=== PATIENT | female | born 1990 | race Caucasian/White ===

== ENCOUNTER 2022-10-23 14:52 | Emergency (ER) | payer OTHER, SELFPAY ==
[2022-10-23 14:52] VITALS: BP 105/68; PULSE 74; RESP 15; TEMP 36.9; O2SAT 100
--- NOTE | 2022-10-23 15:13 | ED.GENADULT ---
HPI - General Adult General Chief complaint: Nausea/Vomiting/Diarrhea Stated complaint: vomiting and urinary issues Time Seen by Provider: 10/23/22 15:05 Source: patient History of Present Illness HPI narrative: -32-year-old female presenting with nausea and vomiting and abdominal pain. Patient states her symptoms have been ongoing for the past several weeks. She describes her symptoms as progressively worsening nausea with vomiting and generalized abdominal pain. She denies any recent illnesses or trauma. Onset (ago): month(s) Location: abdomen Related Data Allergies Allergy/AdvReac Type Severity Reaction Status Date / Time No Known Allergies Allergy Verified 10/23/22 14:58 Exam Const: General: healthy appearing and no acute distress HENMT: Head: normal to inspection Ears: external ears normal Face/Nose/Sinus: Normal external nose present and Normal nares present Face and sinus: normal facial exam Mouth: Yes Normal oral and palatal mucosa present and Yes moist mucous membranes Eyes: Conjunctivae: conjunctivae normal EOM: EOMs intact bilaterally Neck: Neck: normal visual inspection and no meningeal signs Chest: Chest palpation & inspection: normal inspection of the chest and no tenderness Resp: Effort & Inspection: normal respiratory effort and not labored Cardio: Rate: regular rate Rhythm: regular rhythm GI: GI Palp: Yes Soft to palpation and Yes Tenderness to palpation present (GI) ( Mild tenderness to palpation in all abdominal quadrants.) : General: Yes bladder normal to palpation and No Bladder palpation abnormal Skin: General skin exam: normal color and no jaundice Neuro: General: patient oriented x3 Speech: normal speech Extrem: General: normal to inspection and no clubbing, cyanosis or edema Psych: Mental Status: mental status grossly normal Affect: normal affect Course Vital Signs Vital signs: Vital Signs Temperature 36.9 C 10/23/22 14:52 Pulse Rate 74 10/23/22 14:52 Respiratory Rate 15 10/23/22 14:52 Blood Pressure 105/68 10/23/22 14:52 Pulse Oximetry 100 10/23/22 14:52 Oxygen Delivery Room Air 10/23/22 14:52 Temperature 36.9 C 10/23/22 14:52 Pulse Rate 74 10/23/22 14:52 Respiratory Rate 15 10/23/22 14:52 Blood Pressure 105/68 10/23/22 14:52 Pulse Oximetry 100 10/23/22 14:52 Oxygen Delivery Room Air 10/23/22 14:52 Medical Decision Making MDM Narrative Medical decision making narrative: Differential diagnosis includes but not limited to bowel obstruction versus gastritis versus PUD versus food-borne illness versus pancreatitis versus appendicitis versus diverticulitis Versus . Will evaluate with labs and imaging. Will treat with IV Zofran. Patient with a positive urine . She reports having nausea and vomiting with all of her previous 4 pregnancies. She was unaware she was . Her labs are reassuring. No emergent laboratory derangements. No indication for imaging with the new information. Her abdomen was only mildly tender upon palpation upon presentation. I suspect this is due from the vomiting. Repeat exam is unchanged and relatively benign. She does well with p.o. challenge. Will provide a few doses for Zofran for home. Will provide follow-up for an head of data. She was given strict return precautions and follow-up instructions. She feels like proceed outpatient management. Vital Signs Vital Signs: Vital Signs Temperature 36.9 C 10/23/22 14:52 Pulse Rate 74 10/23/22 14:52 Respiratory Rate 15 10/23/22 14:52 Blood Pressure 105/68 10/23/22 14:52 Pulse Oximetry 100 10/23/22 14:52 Oxygen Delivery Room Air 10/23/22 14:52 Temperature 36.9 C 10/23/22 14:52 Pulse Rate 74 10/23/22 14:52 Respiratory Rate 15 10/23/22 14:52 Blood Pressure 105/68 10/23/22 14:52 Pulse Oximetry 100 10/23/22 14:52 Oxygen Delivery Room Air 10/23/22 14:52 Lab Data La
[2022-10-23] MEDS: ONDANSETRON HCL ODT 4 MG TABLET PO (15:25)
[2022-10-23 15:32] LABS: Basophils Absolute Auto 0.02 K/mm3 (0.00-0.10); Basophils Percent Auto 0.2 % (0.0-1.0); Eosinophils Absolute Auto 0.02 K/mm3 (0.02-0.50); Eosinophils Percent Auto 0.2 % (1.0-6.0); Hematocrit 32.8 % (35.0-49.0); Hemoglobin 11.1 g/dL (12.0-15.0); Immature Granulocyte Absolute 0.04 K/mm3 (0.00-0.00); Immature Granulocyte Percent A 0.4 % (0.0-0.0); Lymphocytes Absolute Auto 1.33 K/mm3 (1.10-4.50); Lymphocytes Percent Auto 13.4 % (18.0-42.0); Mean Corpuscular HGB Conc 33.8 g/dL (32.0-36.0); Mean Corpuscular Hemoglobin 28.2 pg (27.0-31.0); Mean Corpuscular Volume 83.5 fL (78.0-102.0); Mean Platelet Volume 10.1 fl (9.2-11.8); Monocytes Percent Auto 6.1 % (2.0-11.0); Neutrophils Absolute Auto 7.9 K/mm3 (1.7-7.2); Neutrophils Percent Auto 79.7 % (50.0-70.0); Platelet Count Result 288 K/mm3 (150-420); Red Blood Count 3.93 M/mm3 (4.20-5.40); Red Cell Distribution Width 14.8 % (11.6-14.4); White Blood Count 9.9 K/mm3 (4.8-10.8)
[2022-10-23 15:34] LABS: Bilirubin Urine Negative (Negative); Blood Urine 1+ (Negative); Color Urine Light Yellow (Yellow); Glucose Urine UA Negative (Negative); Ketones Urine 1+ (Negative); Leukocyte Esterase Ur 1+ LEU/UL (Negative); Nitrate Urine Negative (Negative); Protein Urine Trace (Negative); Specific Grav Ur 1.015 (1.010-1.020); Urobilinogen Urine >=8.0 mg/dL (0.2-1.0); pH Urine 7.5 (5.0-8.0)
[2022-10-23 15:37] LABS: Pregnancy On Board Control Positive; Urine Pregnancy Test Positive
[2022-10-23 15:40] LABS: Add Urine Microscopic? YES; Appearance Urine Cloudy (Clear)
[2022-10-23 15:41] LABS: Bacteria Urine 4+ /hpf; Squamous Epithelial Cell Urine Many /hpf (Few)
[2022-10-23 15:46] LABS: Alanine Aminotransferase 17 U/L (14-59); Albumin Level 2.6 g/dL (3.4-5.0); Alkaline Phosphatase 102 U/L (46-116); Anion Gap 10 mmol/L (8-16); Aspartate Amino Transferase 10 U/L (15-37); Bilirubin,Total 0.3 mg/dL (0.00-1.00); Blood Urea Nitrogen 5 mg/dL (7-18); Calcium 8.8 mg/dL (8.5-10.1); Carbon Dioxide 29 mmol/L (21-32); Chloride 95 mmol/L (98-108); Estimated CRCL calculation 93 ml/min; Estimated Glomerular Filt Rate > 60; Glucose 97 mg/dL (70-99); Lipase 24 U/L (16-77); Osmolality Calculated 275 mOsm/kg (285-295); Potassium 3.1 mmol/L (3.5-5.1); Sodium 134 mmol/L (136-145); Total Protein 7.3 g/dL (6.4-8.2)
[2022-10-23 16:46] VITALS: BP 121/60; PULSE 88; RESP 16; TEMP 36.6; O2SAT 100
--- NOTE | 2022-10-27 15:10 | PC.NURSE ---
dr marie reviewed abnormal urine culture. call to pt to confirm pharmacy and notify need for abt for uti. call placed to [facility], order called in for Keflex 500mg po tid x 7 days, pt aware and will supervisor opening and picking
== END 2022-10-23 16:49 | disposition home or self-care (01) ==
PROVIDERS: Emergency Provider Emergency Medicine
DX: O26.899 Other specified pregnancy related conditions, unspecified trimester (principal); R11.2 Nausea with vomiting, unspecified; Z3A.00 Weeks of gestation of pregnancy not specified
CPT/HCPCS: 36415; 80053; 81001; 81025; 83690; 85025; 87077; 87086; 87088; 87186; 99283; A9270

== ENCOUNTER 2024-04-05 05:18 | Emergency (ER) | payer OTHER, SELFPAY ==
[2024-04-05 05:21] VITALS: BP 147/99; PULSE 102; RESP 18; TEMP 36.8; O2SAT 100
--- NOTE | 2024-04-05 05:36 | ED.GENADULT ---
HPI - General Adult General Chief complaint: Urogenital-Female Stated complaint: urogenital female Time Seen by Provider: 04/05/24 05:35 History of Present Illness HPI narrative: Joy is a 33F with a PMH of polysubstance use that presented to the ED feeling off. She reportedly had consensual vaginal intercourse last night. Since that time she has felt off . She denies any pain, burning, irritation or discharge. She was tearful and feels like he he put something there . She was very tearful through the exam and had trouble giving concise answers. Related Data Home Medications ?Medication ?Instructions ?Recorded ?Confirmed ?Last Taken ?Type bupropion HCl 150 mg 24 hr tablet, 150 mg PO DAILY 04/05/24 04/05/24 04/04/24 History extended release hydroxyzine HCl 25 mg tablet 25 mg PO .daily 04/05/24 04/05/24 04/04/24 History norethindrone 1.5 mg-ethinyl 1 tablet PO DAILY 04/05/24 04/05/24 Unknown History estradiol 30 mcg(21)/iron 75 mg(7) tablet (Veronica Fe 1.5/30 (28)) Allergies Allergy/AdvReac Type Severity Reaction Status Date / Time No Known Allergies Allergy Verified 04/05/24 06:26 Review of Systems Review of Systems: All systems reviewed & are unremarkable except as noted in HPI and below Exam Const: General: cooperative, healthy appearing, comfortable, no acute distress, well developed, alert, awake and Physically active Orientation/consciousness: oriented to person, oriented to place and oriented to time HENMT: Head: normal to inspection, normocephalic and atraumatic Ears: hearing grossly normal bilaterally and external ears normal Face/Nose/Sinus: Normal external nose present Eyes: General: appearance normal, both eyes and all related structures Periorbital: periorbital findings normal Sclera: sclerae normal Pupils: Equal, round and reactive pupils present Neck: Neck: normal visual inspection Chest: Chest palpation & inspection: normal inspection of the chest Resp: Effort & Inspection: normal respiratory effort, able to speak in complete sentences and no respiratory distress Cardio: Jugular venous distension: no JVD : Speculum Exam - Vagina: abnormal vaginal discharge white, malodorous and frothy Speculum Exam - Cervix: normal appearance of the cervix Other: No foreign body in the vagina Skin: General skin exam: normal color and no rashes or lesions noted Neuro: General: oriented to person, oriented to place and oriented to time Cranial nerves: Yes Equal, round and reactive pupils present Extrem: General: normal to inspection Course Course Emergency Course: Given a dose of fluconazole Vital Signs Vital signs: Vital Signs Temperature 98.3 F 04/05/24 05:21 Pulse Rate 102 H 04/05/24 05:21 Respiratory Rate 18 04/05/24 05:21 Blood Pressure 147/99 H 04/05/24 05:21 Pulse Oximetry 100 04/05/24 05:21 Oxygen Delivery Room Air 04/05/24 05:21 Temperature 98.3 F 04/05/24 05:21 Pulse Rate 102 H 04/05/24 05:21 Respiratory Rate 18 04/05/24 05:21 Blood Pressure 147/99 H 04/05/24 05:21 Pulse Oximetry 100 04/05/24 05:21 Oxygen Delivery Room Air 04/05/24 05:21 Medical Decision Making Vital Signs Vital Signs: Vital Signs Temperature 98.3 F 04/05/24 05:21 Pulse Rate 102 H 04/05/24 05:21 Respiratory Rate 18 04/05/24 05:21 Blood Pressure 147/99 H 04/05/24 05:21 Pulse Oximetry 100 04/05/24 05:21 Oxygen Delivery Room Air 04/05/24 05:21 Temperature 98.3 F 04/05/24 05:21 Pulse Rate 102 H 04/05/24 05:21 Respiratory Rate 18 04/05/24 05:21 Blood Pressure 147/99 H 04/05/24 05:21 Pulse Oximetry 100 04/05/24 05:21 Oxygen Delivery Room Air 04/05/24 05:21 Discharge Plan Discharge Clinical Impression: Vulvovaginal candidiasis Patient Disposition: Home, Self-Care Condition: Stable Instructions: Yeast Infection (ED) Patient Language: Ukrainian Prescriptions: No Action ondansetron 4 mg tablet,disintegrating 4 mg PO Q8H PRN (Reason: nausea and vomiting) Qty: 7 0RF Follow-up/Referrals: UNKNOWN,DOCTOR [Primary Care Provider] -
--- NOTE | 2024-04-05 05:46 | PC.NURSE ---
pt ambulated to bathroom for urine specimen
[2024-04-05 06:00] LABS: Add Urine Microscopic? YES; Appearance Urine Clear (Clear); Bilirubin Urine Negative (Negative); Blood Urine Negative (Negative); Color Urine Yellow (Yellow); Glucose Urine UA Negative (Negative); Ketones Urine Negative (Negative); Leukocyte Esterase Ur Trace (Negative); Nitrate Urine Negative (Negative); Protein Urine Trace (Negative); Specific Grav Ur >= 1.030 (1.010-1.020); Urobilinogen Urine 0.2 mg/dL (0.2-1.0)
[2024-04-05 06:05] LABS: Pregnancy On Board Control Positive; Urine Pregnancy Test Negative
[2024-04-05 06:09] LABS: Bacteria Urine 4+ /hpf; RBC Urine 0-2 /hpf (0-2); Squamous Epithelial Cell Urine Few /hpf (Few)
[2024-04-05] MEDS: FLUCONAZOLE 150 MG TABLET PO (06:33)
== END 2024-04-05 06:35 | disposition home or self-care (01) ==
PROVIDERS: Emergency Provider Family Medicine
DX: B37.31 Acute candidiasis of vulva and vagina (principal)
CPT/HCPCS: 81001; 81025; 81513; 99284; A9270

== ENCOUNTER 2024-04-30 10:14 | Emergency (ER) | payer OTHER, SELFPAY ==
[2024-04-30] VITALS (7 sets, daily range): BP systolic 130–141; BP diastolic 82–98; PULSE 81–100; RESP 8–22; TEMP 36.5; O2SAT 100
--- NOTE | ~2024-04-30 | XR_ITS ---
EXAMINATION: XR chest 1V portable DATE: 04/30/2024 10:56 INDICATION: Chest pain. TECHNIQUE: A single frontal view of the chest was obtained. COMPARISON: None. FINDINGS: There is no pneumonia, pleural effusion, or pneumothorax. The heart size is normal. IMPRESSION: 1. No acute cardiopulmonary disease. Reviewed, dictated and finalized at location A. ERIOLOGIST DAIRY
--- NOTE | 2024-04-30 10:27 | ECG_ITS ---
Test Date: 2024-04-30 10:25:34 Measurements Intervals [place] Rate: 100 P: 80 NJ: 115 QRS: 75 QRSD: 102 T: 86 QT: 365 QTc: 473 Interpretive Statements SINUS TACHYCARDIA WITH SHORT [place] INTERVAL DELAYED PRECORDIAL R/S TRANSITION BORDERLINE ECG No previous ECG available for comparison Electronically Signed On 04-30-2024 10:34:07 BEAMER OPERATOR by Fab Liriano D.O.
--- NOTE | 2024-04-30 10:31 | ED_ITS ---
HPI - Chest Pain General Chief Complaint: Chest Pain Stated Complaint: URI Time Seen by Provider: 04/30/24 10:31 Source: patient Mode of arrival: ambulatory Limitations: no limitations History of Present Illness HPI narrative: patient is a 33-year-old female with prior IVDA and current fentanyl use recreationally here with some left-sided chest pain for the past day. No prior CAD. MD complaint: chest pain and chest discomfort Pertinent past history: other ( opiate use disorder, OCP use) Onset (ago): day(s) (1) Timing of current episode: constant Prior episodes: No Onset: during rest and during exertion Pain location: substernal and left chest Pain radiation: none Severity: mild Pain scale (0-10): 5 Quality: tightness, heaviness and sharp Relieving factors: nothing Exacerbating factors: exertion and stress Context: other ( Patient has left-sided chest pain for the past day) Associated symptoms: nausea and dyspnea Treatment prior to arrival: none Risk Factors Coronary artery disease risk factors: none Thoracic aortic dissection risk factors: none Related Data On Oral Contraceptives: Yes Home Medications ?Medication ?Instructions ?Recorded ?Confirmed ?Last Taken ?Type bupropion HCl 150 mg 24 hr tablet, 150 mg PO DAILY 04/05/24 04/05/24 04/04/24 Hi story extended release hydroxyzine HCl 25 mg tablet 25 mg PO .daily 04/05/24 04/05/24 04/04/24 History norethindrone 1.5 mg-ethinyl 1 tablet PO DAILY 04/05/24 04/05/24 Unknown History estradiol 30 mcg(21)/iron 75 mg(7) tablet (Veronica Fe 1.5/30 (28)) Allergies Allergy/AdvReac Type Severity Reaction Status Date / Time No Known Allergies Allergy Verified 04/30/24 10:29 Review of Systems Review of Systems: All systems reviewed & are unremarkable except as noted in HPI and below Constitutional: Constitutional: Reports no additional constitutional complaints Eyes: Eyes: Reports no additional eye complaints ENT: Reports system reviewed and no additional complaints, except as documented Cardiovascular: Cardiovascular: Reports no additional cardiovascular complaints Respiratory: Respiratory: Reports no additional respiratory complaints Gastrointestinal: Gastrointestinal: Reports no additional gastrointestinal complaints Genitourinary: Genitourinary: Reports no additional female genitourinary complaints Musculoskeletal: Musculoskeletal: Reports no additional musculoskeletal complaints Integumentary/Breasts: Skin/Breast: Reports system reviewed and no additional complaints, except as docu Neurologic: Reports system reviewed and no additional complaints, except as documented Psychiatric: Psychiatric: Reports no additional psychiatric complaints Endocrine: Endocrine: Reports no additional endocrine complaints Hematologic/Lymphatic: Hematologic/Lymphatic: Reports no additional hematologic/lymphatic complaints Allergic/Immunologic: Allergic/Immunologic: Reports no additional allergic/immunologic complaints Exam Const: General: healthy appearing Nutritional Appearance: well nourished Orientation/consciousness: patient oriented x3 HENMT: Head: normal to inspection Ears: external ears normal Face/Nose/Sinus: Normal external nose present Eyes: Conjunctivae: conjunctivae normal Pupils: Equal, round and reactive pupils present EOM: EOMs intact bilaterally Neck: Neck: normal visual inspection Chest: Chest palpation & inspection: normal inspection of the chest Resp: Effort & Inspection: normal respiratory effort and not labored Auscultation: clear to auscultation bilaterally and no crackles Cardio: Rate: regular rate Rhythm: regular rhythm Heart sounds: no murmurs GI: Inspection: non-distended GI Palp: Yes Soft to palpation and No Tenderness to palpation present (GI) Auscultation: normal bowel sounds : General: Yes bladder normal to palpation Back/Spine/Pelvis: Back: no CVA tenderness Skin: General skin exam: normal color Rashes: no rashes Neuro: General: patient oriented x3 Cranial nerves: Yes Nystagmus not present Speech: normal speech Extrem: General: normal to inspection Psych: Mental Status: mental status grossly normal Affect: normal affect Attitude: cooperative Course Vital Signs Vital signs: Vital Signs Oxygen Delivery Room Air 04/30/24 10:14 Temperature 36.5 C 04/30/24 10:19 Pulse Rate 86 04/30/24 11:31 Respiratory Rate 14 04/30/24 11:31 Blood Pressure 131/91 H 04/30/24 11:31 Pulse Oximetry 100 04/30/24 11:07 Oxygen Delivery Room Air 04/30/24 10:19 MDM - Chest Pain MDM Narrative Medical decision making narrative: patient is a 33-year-old female with some left-sided chest pain for the past day. We will do cardiac workup at this time. we could not get an IV at this time from prior IVDA use and I was going to do a femoral stick and she decided she did not want that at that time. All in all we tried multiple nurses and doctors to get IV and unsuccessful attempts. Patient wanted to go AMA at this time. She did not want further workup. We had an EKG and chest x-ray which were stable. I personally explained to the patient the risks and consequences involved in leaving at this time. I explained the benefits of treatment and alternatives. Patient is AAO x4. I will send antibiotic for UTI. Lab Data Attestation: I reviewed the patient's lab results. Labs: Lab Results 04/30/24 Range/Units 10:34 Urine Color Light yellow (Yellow) Urine Appearance Cloudy A (Clear) Urine pH 8.0 (5.0-8.0) Ur Specific [place] 1.020 (1.010-1.020) Urine Protein Trace H (Negative) Urine Glucose (UA) Negative (Negative) Urine Ketones Negative (Negative) Ur Blood (Man) Negative (Negative) Urine Nitrate Positive H (Negative) Urine Bilirubin Negative (Negative) Urine Urobilinogen 0.2 (0.2-1.0) mg/dL Leukocyte Esterase Rfl 1+ H (Negative) [place]/UL Urine RBC None seen (0-2) /hpf Urine WBC 0-3 (0-3) /hpf Ur Squamous Epith Cells Few (Few) /hpf Amorphous Sediment Moderate H (None) Urine Bacteria 2+ H (None) /hpf Urine Test Negative Urine Opiates Screen Negative (Negative) Urine Methadone Screen Negative (Negative) Ur Barbiturates Screen Negative (Negative) Ur Phencyclidine Scrn Negative (Negative) Ur Amphetamine Screen Positive A (Negative) U Benzodiazepines Scrn Negative (Negative) Urine Cocaine Screen Negative (Negative) U Cannabinoids Screen Positive A (Negative) Imaging Data Attestation: I personally reviewed and interpreted this imaging study as follows: Radiologist's impression: chest x-ray is negative for acute process ECG Data EKG #1: Attestation: I personally reviewed and interpreted this ECG as follows: ECG completion date: 04/30/24 ECG completion time: 11:06 EKG Interpretation: tachycardia, sinus rhythm, no ectopy, non-specific ST changes, normal QRS, normal QT and NL axis Discharge Plan Discharge Clinical Impression: Atypical chest pain, Amphetamine abuse, UTI (urinary tract infection), Opioid abuse Patient Disposition: Left Against Medical Advice Condition: Stable Patient Language: Mohawk Prescriptions: New cephalexin 500 mg capsule 500 mg PO BID 7 Days Qty: 14 0RF No Action bupropion HCl 150 mg tablet extended release 24 hr 150 mg PO DAILY hydroxyzine HCl 25 mg tablet 25 mg PO .daily norethindrone-e.estradiol-iron [Veronica Fe 1.5/30 (28)] 1.5 mg-30 mcg (21)/75 mg (7) tablet 1 tablet PO DAILY Follow-up/Referrals: UNKNOWN,DOCTOR [Primary Care Provider] - Time of Disposition: 11:50
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
--- OUTSIDE RECORDS SUMMARY | 2024-04-30 10:43 | XMS_ITS | Encounter Summary ---
Author Organization [facility] Healthcare Address [address] [place] [address] Care Team Providers Care Manager Oracle Name Role Phone Ronan Lebron MD Primary Care Provider [phone] Encounter Details Date Type Department Care Team (Late st Contact Info) Description 04/22/2024 8:30 AM [facility] Encounter [facility] [address] [place] [address] Rosey Martinez MD [address] [place] [address] [address] Social History Tobacco Use Types Packs/Day Years [...] Never 04/15/2023 How often do you attend pentecostalism or methodist serv ices? Never 04/15/2023 Do you belong to any clubs o r organizations such as pentecostalism groups, unions, fraternal or athletic groups, or [...] staff should administer the PHQ-9) 3 04/15/2023 [facility] - Occupational Stress [...] place to sleep or slept in a penitentiary (including now)? No 04/15/2023 Personal Safety Answer Date Recorded Have you ever been in or are you currently in a harmful physical or emotional relationship or is someone making you feel afraid or unsafe? Denies 04/15/2023 Comments No Sex and Gender Information Value Date Recorded Sex Assigned at Not on file Legal Sex Female 2:58 AM ENTRY LEVEL TRUCK DRIVER Gender Identity Female 04/16/2024 3:36 PM ENTRY LEVEL TRUCK DRIVER Sexual Orientation Not on file documented as of this encounter Plan of Treatment Not on file documented as of this encounter Visit Diagnoses Not on filedocumented in this encounter Care Teams Manager Oracle Relationship Specialty Start Date End Date Ronan Lebron MD [address] [place] [id number] PCP - General Family Medicine 09/23/16 documented as of this encounter
--- OUTSIDE RECORDS SUMMARY | 2024-04-30 10:43 | XMS_ITS | Encounter Summary ---
Author Organization [facility] Healthcare Address [address] [place] [address] Care Team Providers Care Barber Shop Operator Name Role Phone Ronan Lebron MD Primary Care Provider [phone] Encounter Details Date Type Department Care Team (Late st Contact Info) Description 10/15/2020 [facility] Warm Hand Off Program [address] [place], [place] [phone] Richa Luna Social History Tobacco Use Types Packs/Day Years Used Date Smoking Tobacco: Every Day Cigarettes Smokeless Tobacco: Never Comments:Smoking History Pac ks/day: 1 Packs Alcohol Use Standard Drinks/Week Comments No 0 (1 standard drink = 0.6 oz pur e alcohol) AUDIT-C Answer Date Recorded Q1: How often do you have a drink containing alc ohol? Never 10/13/2020 Average Number of Drinks Not on file 021 Frequency of Binge Drinking Not on file 09/25 Comments No Sex and Gender Information Value Date Recorded Sex Assigned at Not on file Legal Sex Female 2:58 AM CATALYST UNIT OPERATOR Gender Identity Female 04/16/2024 3:36 PM CATALYST UNIT OPERATOR Sexual Orientation Not on file documented as of this encounter Progress Notes * Ana Henderson - 10/15/2020 3:40 PM CDT Completed retroactively for Warm Hand Off Program data documented in this encounter Plan of Treatment Not on file documented as of this encounter Visit Diagnoses Not on filedocumented in this encounter Care Teams Barber Shop Operator Relationship Specialty Start Date End Date Ronan Lebron MD [address] [place] [id number] PCP - General Family Medicine 09/23/16 documented as of this encounter
--- OUTSIDE RECORDS SUMMARY | 2024-04-30 10:43 | XMS_ITS | Referral Summary ---
Author Organization [facility] al Address 1 [place] [address] Care Team Providers Care Hand Baseball Sewer Name Role Phone Ronan Lebron MD Primary Care Provider Encounters Date Type Department Care Team Description 04/22/2024 8:30 AM PRODUCTION SUPERVISOR OFF SHIFT Hospital Encounter [facility] Medical Care 1 [place] [address] Rosey Martinez MD 04/16/2024 [facility] Initial Eligibility [facility] Warm Hand Off Program 1 [place], [place] [phone] LunaRicha palacios from Last 3 Months Allergies No known active allergies Medications ibuprofen (ADVIL,MOTRIN) 600 mg tabletIndicatio ns:Pain Take 1 tablet (600 mg total) by mouth every 6 (six) hours as needed for pain 30 tablet 1 04/16/2023 Active docusate sodium (COLACE) 100 mg capsuleIndicati ons:constipatio n,Stool Softener Take 1 capsule (100 mg total) by mouth 2 (two) times a day 24 capsule 1 04/16/2023 Active Active Problems Problem Noted Date Diagnosed Date 33 weeks gestation of 04/15/2023 History of drug abuse ([facility]) 03/01/2013 Overview (06/30/2016): History of heroin abuse Imprisonment 03/01/2013 Overview (07/01/2016): Incarceration Immunizations Name Administration Dates Next Due Influenza, Quadrivalent, Spl it, Preservative Free, Intramuscular 07/27/2015 MMR 10/15/2020(Deferred: No longer needed),07/27/2015 Tdap 07/26/2015 Social History Tobacco Use Types Packs/Day Years [...] Never 04/15/2023 How often do you attend restorationist or buddhist serv ices? Never 04/15/2023 Do you belong to any clubs o r organizations such as restorationist groups, unions, fraternal or athletic groups, or [...] you are drinking? Patient does not drink Q3: How often do you have si [...] staff should administer the PHQ-9) 3 04/15/2023 [facility] [place] of Occupat ional Health - Occupational Stress [...] place to sleep or slept in a assisted (including now)? No 04/15/2023 Personal Safety Answer Date Recorded Have you ever been in or are you currently in a harmful physical or emotional relationship or is someone making you feel afraid or unsafe? Denies 04/15/2023 Comments No Sex and Gender Information Value Date Recorded Sex Assigned at Not on file Legal Sex Female 2:58 AM PRODUCTION SUPERVISOR OFF SHIFT Gender Identity Female 04/16/2024 3:36 PM PRODUCTION SUPERVISOR OFF SHIFT Sexual Orientation Not on file Last Filed Vital Signs Vital Sign Reading Time Taken Comments Blood Pressure 142/95 04/17/2023 10:38 AM PRODUCTION SUPERVISOR OFF SHIFT Pulse 64 04/17/2023 10:38 AM PRODUCTION SUPERVISOR OFF SHIFT Temperature 37 ??C (98.6 ??F) 04/17/2023 10:38 AM PRODUCTION SUPERVISOR OFF SHIFT Respiratory Rate 16 04/17/2023 10:38 AM PRODUCTION SUPERVISOR OFF SHIFT Oxygen Saturation 99% 04/16/2023 4:20 PM PRODUCTION SUPERVISOR OFF SHIFT Inhaled Oxygen Concentration - - Weight 54.4 kg (120 lb) 04/15/2023 1:22 PM PRODUCTION SUPERVISOR OFF SHIFT Height 160 cm (5' 3 ) 04/15/2023 12:00 PM PRODUCTION SUPERVISOR OFF SHIFT Body Mass Index 21.26 04/15/2023 12:00 PM PRODUCTION SUPERVISOR OFF SHIFT Plan of Treatment Not on file Procedures Procedure Name Priority Date/Time Associated Diagnosis Comments HEPATITIS PANEL, ACUTE Routine 04/15/2023 12:25 PM PRODUCTION SUPERVISOR OFF SHIFT GENITAL FLUID PAP SMEAR, THIN PREP AND HPV Routine 12/22/2014 7:00 PM CDT from Last 3 Months or Most Recently Relevant to Health Maintenance Results * Hepatitis panel, acute Blood (04/15/2023 12:25 PM PRODUCTION SUPERVISOR OFF SHIFT) Hep A IgM Nonreactive Nonreactive [facility] ([facility]) Comment: Interpretive Data: If Hep A IgM Ab is reported as Equivocal, a new sample should be drawn in two weeks for testing. Current interpretive data was last revised on 19. Testing performed by: [address] [address] Hep B core IgM Nonreactive Nonreactive [facility] ([facility]) Comment: Interpretive Data If HepB Core IgM Ab is reported as Equivocal, a new sample should be drawn in two weeks for testing. Current interpretive data was last revised on 19. Testing performed by: [address] [address] Hep C Ab Nonreactive Nonreactive [facility] ([facility]) Comment: Interpretive Data Nonreactive: Antibodies to HCV not detected. Does NOT exclude the possibility of recent exposure to HCV. Equivocal: Equivocal for HCV antibodies. Supplemental molecular testing will be automatically performed to determine infection status in accordance with current CDC screening recommendations. ?? Reactive: Positive for HCV antibodies. ??This may represent current or past HCV infection. Supplemental molecular testing will be automatically performed to determine ??current infection status in accordance with current CDC screening recommendations. Interpretive data was last revised on 2019. Testing performed by: [address] [address] HepBsAg Nonreactive Nonreactive [facility] ([facility]) Comment:Testing performed by : [address] [address] Blood 04/15/2023 12:2 5 PM PRODUCTION SUPERVISOR OFF SHIFT 04/15/2023 7:08 PM PRODUCTION SUPERVISOR OFF SHIFT Omar Rangel MD LAB MICROBIOLOGY - GEN ERAL ORDERABLES Final Result MANUEL WHIPPLE ([place]) 1 [facility] Department [place] [address] * (ABNORMAL) Genital fluid pap smear, thin prep and HPV (12/22/2014 7:00 PM CDT) Clinical information SEE NOTE HISTORICAL RESULTS Comment: 6WEEKS LMP SEE NOTE HISTORICAL RESULTS Comment:INFORMATION NOT PROV IDED Previous Pap SEE NOTE HISTORI STEFAN RESULTS Comment:INFORMATION NOT PROV IDED Previous biopsy SEE NOTE HIST ORICAL RESULTS Comment:INFORMATION NOT PROV IDED Referral specimen source SEE NOTE HISTORICAL RESULTS Comment:Cervix, Endocervix Statement of adequacy SEE NOTE HISTORICAL RESULTS Comment: Satisfactory for evaluation. Endocervical/transformation zone component present. Referral specimen, interp SEE NOTE(A) HISTORICAL RESULTS Comment:Low Grade Squamous I ntraepithelial Lesion (LSIL) Infection SEE NOTE HISTORICAL RESULTS Comment: Shift in vaginal rosa maria suggestive of bacterial vaginosis. Variable comment SEE NOTE HIS TORICAL RESULTS Comment: This test was performed using the APTIMA COMBO2 Assay ([employer] The analytical performance characteristics of this assay, when used to test SurePath specimens have been determined by [employer]. ?? Human papillomavirus RNA, High Risk E6/E7 Detected(A) Not Detected HISTORICAL RESULTS Comment: This test was performed using the APTIMA HPV Assay ([employer] ? This assay detects E6/E7 viral messenger RNA (mRNA) from 14 high-risk HPV types (16,18,31,33,35,39,45,51,52,56,58,59,66,68). Chlamydia trachomatis, PCR, genital swab NOT DETECTED NOT DETECTED HISTORICAL RESULTS Gonorrheae (GC) RNA, genital swab NOT DETECTED NOT DETECTED HISTORICAL RESULTS Genital 12/22/2014 7:00 PM CDT Narrative HISTORICAL RESULTS - 12/29/2014 2:00 AM CDT Test performed at [facility] ??[id number] Director: MEGAN ALARCON MD us Historical Provider LAB CYTOLOGY ORDERABLES F inal Result HISTORICAL RESULTS from Last 3 Months or Most Recently Relevant to Health Maintenance Insurance [facility] Advance Directives For more information, please contact: [phone] * Full Code (Latest Code Status on File) Date Activated Date Inactivated Comments 04/15/2023 3:53 PM 04/17/2023 3:15 PM * Full Code Date Activated Date Inactivated Comments 04/15/2023 1:16 PM 04/15/2023 3:53 PM Full CPR in case of cardiopulmonary arrest * Full Code Date Activated Date Inactivated Comments 10/13/2020 3:03 PM 10/16/2020 12:35 AM * Full Code Date Activated Date Inactivated Comments 10/13/2020 12:46 PM 10/13/2020 3:02 PM Full CPR in case of cardiopulmonary arrest Care Teams Hand Baseball Sewer Relationship Specialty Start Date End Date Ronan Lebron MD [address] [place] [id number] PCP - General Family Medicine 09/23/16
--- OUTSIDE RECORDS SUMMARY | 2024-04-30 10:43 | XMS_ITS | Clinical Summary ---
Author Organization [facility] al Address 1 [place] [address] Care Team Providers Care Program Aide Group Work Name Role Phone Ronan Lebron MD Primary Care Provider [phone] Allergies No known active allergies Medications ibuprofen [...] gestation of 04/15/2023 History of drug abuse ([facility]) 03/01/2013 Overview (06/30/2016): History of heroin abuse Imprisonment 03/01/2013 Overview (07/01/2016): Incarceration Encounters Date Type Department Care Team Description 04/22/2024 8:30 AM WRAPPING CHECKER Hospital Encounter [facility] Medical Care 1 [place] [address] Rosey Martinez MD 04/16/2024 [facility] Initial Eligibility [facility] Warm Hand Off Program 1 [place], [place] [phone] Richa Luna from Last 3 Months Immunizations Name Administration Dates Next Due Influenza, Quadrivalent, Spl it, Preservative Free, Intramuscular 07/27/2015 MMR 10/15/2020(Deferred: No longer needed),07/27/2015 Tdap 07/26/2015 Surgical History Surgery Date Site/Laterality Comments SECTION, LOW TRANSVERSE Family History Medical History Relation Name Comments Hypertension Father Hypertension; Hepatitis Father's Brother Hepatitis C ; Hypertension Sister Hypertension; Relation Name Status Comments Father Father's Brother Sister Social History Tobacco Use Types Packs/Day Years [...] Never 04/15/2023 How often do you attend cheondoism or evangelical serv ices? Never 04/15/2023 Do you belong to any clubs o r organizations such as cheondoism groups, unions, fraternal or athletic groups, or [...] staff should administer the PHQ-9) 3 04/15/2023 [facility] of Occupat ional Health - Occupational [...] place to sleep or slept in a jail (including now)? No 04/15/2023 Personal Safety Answer Date Recorded Have you ever been in or are you currently in a harmful physical or emotional relationship or is someone making you feel afraid or unsafe? Denies 04/15/2023 Comments No Sex and Gender Information Value Date Recorded Sex Assigned at Not on file Legal Sex Female 2:58 AM WRAPPING CHECKER Gender Identity Female 04/16/2024 3:36 PM WRAPPING CHECKER Sexual Orientation Not on file Obstetrics History Para Term AB IAB SAB Ectopic Multiple Livin g Live Births 6 5 1 4 0 5 5 Date Outcome GA Total Labor Labor/2nd/3rd Weight Sex Type Anes PTL Ayaka A1 A5 Name Clin 2013 35w 0d 1.361 kg (3 lb) CS-LT ranv Spinal Y Livin g Dianna Complications: delive ry,Breech presentation,Non-reassuring electronic monitoring tracing 2015 Term 38w 0d 1.814 kg (4 lb) M CS-LT ranv Spinal N Livin g Bharat Complications:None 2016 36w 6d 1.616 kg (3 lb 9 oz) F CS-LT ranv Spinal Y Livin g Beatrice Complications: delive ry 2020 34w 1d 0h 03m 0h 03m 2.28 kg (5 lb 0.4 oz) M CS-LT ranv Epidur al Y Livin g 8 9 SAHARA HYDE, Son solomon MD Complications:None Delivery Location:This Facil ity ([facility] L AND D PROCEDURE) Comments:Transport Tea m at bedside caring for infant. 2023 33w 6d 2.005 kg (4 lb 6.7 oz) M C-Sec tion Spinal Y Livin g 8 9 Eatyn Dougla s Stacey jeter, Son solomon MD Delivery Location:This Facil ity ([facility] L AND D PROCEDURE) Last Filed Vital Signs Vital Sign Reading Time Taken Comments Blood Pressure 142/95 04/17/2023 10:38 AM WRAPPING CHECKER Pulse 64 04/17/2023 10:38 AM WRAPPING CHECKER Temperature 37 ??C (98.6 ??F) 04/17/2023 10:38 AM WRAPPING CHECKER Respiratory Rate 16 04/17/2023 10:38 AM WRAPPING CHECKER Oxygen Saturation 99% 04/16/2023 4:20 PM WRAPPING CHECKER Inhaled Oxygen Concentration - - Weight 54.4 kg (120 lb) 04/15/2023 1:22 PM WRAPPING CHECKER Height 160 cm (5' 3 ) 04/15/2023 12:00 PM WRAPPING CHECKER Body Mass Index 21.26 04/15/2023 12:00 PM WRAPPING CHECKER Plan of Treatment Health Maintenance Due Date Last Done Comments Pneumococcal vaccine <65 (1 of 2 - PCV) 1996 Varicella Vaccines (1 of 2 - 13+ 2-dose series) 09/12/2003 Regular Well Visit/Exam 18-64 2008 Cervical Cancer Screening 12/23/2015 12/22/2014 Influenza Vaccine (#1) 2023 07/27/2015 Depression Screening 04/15/2024 04/15/2023, 04/15/19 24 DTaP/Tdap/Td Vaccine (6 - Td or Tdap) 07/25/2025 07/26/2015, 11/04/1992, 10/29/1991, Additional history exists Hepatitis C Screening Completed 04/15/2023 , 10/13/2020, 03/18/2016, Additional history exists HPV Vaccines Aged Out No longer eligi ble based on patient's age to complete this topic Procedures Procedure Name Priority Date/Time Associated Diagnosis Comments HEPATITIS PANEL, ACUTE Routine 04/15/2023 12:25 PM WRAPPING CHECKER GENITAL FLUID PAP SMEAR, THIN PREP AND HPV Routine 12/22/2014 7:00 PM CDT from Last 3 Months or Most Recently Relevant to Health Maintenance Results * Hepatitis panel, acute Blood (04/15/2023 12:25 PM WRAPPING CHECKER) Hep A IgM Nonreactive Nonreactive [facility] ([place]) Comment: Interpretive Data: If Hep A IgM Ab is reported as Equivocal, a new sample should be drawn in two weeks for testing. Current interpretive data was last revised on 19. Testing performed by: [address] [address] Hep B core IgM Nonreactive Nonreactive [facility] ([place]) Comment: Interpretive Data If HepB Core IgM Ab is reported as Equivocal, a new sample should be drawn in two weeks for testing. Current interpretive data was last revised on 19. Testing performed by: [address] [address] Hep C Ab Nonreactive Nonreactive [facility] [...] last revised on 2019. Testing performed by: [facility], [address] [place] [address]., [address] HepBsAg Nonreactive Nonreactive [facility]IP[facility] ([place]) Comment:Testing performed by : [facility], [address] [place] [address]., [address] Blood 04/15/2023 12:2 5 PM WRAPPING CHECKER 04/15/2023 7:08 PM WRAPPING CHECKER us Omar Rangel MD LAB MICROBIOLOGY - GEN ERAL ORDERABLES Final Result [facility] WHIP[facility] ([place]) 1 [facility] Department [place] [address] * (ABNORMAL) Genital fluid pap smear, thin [...] was performed using the APTIMA COMBO2 Assay ([employer] The analytical performance characteristics of this assay, when used to test SurePath specimens have been determined by [employer]. ?? Human papillomavirus RNA, High Risk E6/E7 Detected(A) Not Detected HISTORICAL RESULTS Comment: This test was performed using the APTIMA HPV Assay ([employer] ? This assay detects E6/E7 viral messenger RNA (mRNA) from 14 high-risk HPV types (16,18,31,33,35,39,45,51,52,56,58,59,66,68). Chlamydia trachomatis, PCR, genital swab NOT DETECTED NOT DETECTED HISTORICAL RESULTS Gonorrheae (GC) RNA, genital swab NOT DETECTED NOT DETECTED HISTORICAL RESULTS Genital 12/22/2014 7:00 PM CDT Narrative HISTORICAL RESULTS - 12/29/2014 2:00 AM CDT Test performed at [address] ??[id number] Director: MEGAN ALARCON MD us Historical Provider LAB CYTOLOGY ORDERABLES F inal Result HISTORICAL RESULTS from Last 3 Months or Most Recently Relevant to Health Maintenance Insurance [facility] OTHER Address: [address] [place] [id number] [facility] Advance Directives For more information, please contact: [phone] * Full Code (Latest Code Status on [...] in case of cardiopulmonary arrest Care Teams Program Aide Group Work Relationship Specialty Start Date End Date Ronan Lebron MD [address] [place] [id number] PCP - General Family Medicine 09/23/16
--- NOTE | 2024-04-30 10:59 | PC.NURSE ---
HAVING DIFFICULTY ESTABLISHING IV SITE AT THIS TIME. PT REPORTS SHE IN AN EX-IV DRUG USER. ERP IS AWARE. PT DECLINED TO HAVE LAB OBTAIN LABS, THUS THE REASON FOR DELAY IN RESULTS. WILL CONTINUE TO MONITOR.
[2024-04-30 11:11] LABS: Add Urine Microscopic? YES; Bilirubin Urine Negative (Negative); Blood Urine Negative (Negative); Color Urine Light Yellow (Yellow); Glucose Urine UA Negative (Negative); Ketones Urine Negative (Negative); Leukocyte Esterase Ur 1+ LEU/UL (Negative); Nitrate Urine Positive (Negative); Protein Urine Trace (Negative); Urobilinogen Urine 0.2 mg/dL (0.2-1.0)
[2024-04-30] MEDS: LIDOCAINE 1% LOCAL INJ 10 ML VIAL 5 ML INFILTRATE (11:15)
[2024-04-30 11:20] LABS: Amorphous Sediment Urine Moderate; Appearance Urine Cloudy (Clear); Bacteria Urine 2+ /hpf; RBC Urine None seen /hpf (0-2); Squamous Epithelial Cell Urine Few /hpf (Few); WBC Urine 0-3 /hpf (0-3)
[2024-04-30 11:21] LABS: Pregnancy On Board Control Positive; Urine Pregnancy Test Negative
--- NOTE | 2024-04-30 11:23 | PC.NURSE ---
PT WAS CONSENTING TO FEMORAL STICK FOR LAB DRAW, ERP AND RN AT BEDSIDE TO PERFORM PROCEDURE, PT DECLINES DURING PREP. ERP EXPLAINED RISKS AND BENEFITS OF OBTAINING LAB WORK FOR HER CHEST PAIN. PT DECLINES EJ, IV IN FOOT, OR ANY OTHER IV STICKS. PT REPORTS SHE WILL THINK ABOUT PLAN OF CARE, FAMILY IS NOW AT BEDSIDE, AWAITING PT'S DECISION. WILL CONTINUE TO MONITOR.
[2024-04-30 11:26] LABS: Amphetamine Screen Urine Positive (Negative); Barbiturate Screen Urine Negative (Negative); Benzodiazepines Screen Urine Negative (Negative); Cannabinoid Screen Urine Positive (Negative); Cocaine Screen Urine Negative (Negative); Methadone Screen Urine Negative (Negative); Opiate Screen Urine Negative (Negative); Phencyclidine Screen Urine Negative (Negative)
--- NOTE | 2024-04-30 11:45 | PC.NURSE ---
PT DECLINES ART STICK, UNABLE TO OBTAIN BLOOD WORK, PT REPORTS SHE IS FEELING BETTER AND WOULD LIKE TO GO. ERP IS AWARE. AMA FORM SIGNED. FAMILY TO TRANSPORT.
--- OUTSIDE RECORDS SUMMARY | 2024-04-30 11:49 | XMS_ITS | Referral Summary ---
Author Organization [facility] al Address 1 [place] [address] Care Team Providers Care Medical Delivery Driver Name Role Phone Ronan Lebron MD Primary Care Provider [phone] Encounters Date Type Department Care Team Description 04/22/2024 8:30 AM HAZARDOUS MATERIAL SPECIALIST Hospital Encounter [facility] Medical Care 1 [place] [address] Rosey Martinez MD 04/16/2024 [facility] Initial Eligibility [facility] Warm Hand Off Program 1 [place], [place] [phone] LunaRicha palacios from Last 3 Months Allergies [...] gestation of 04/15/2023 History of drug abuse ([facility]) 03/01/2013 Overview (06/30/2016): History of heroin [...] Never 04/15/2023 How often do you attend anglican or episcopal serv ices? Never 04/15/2023 Do you belong to any clubs o r organizations such as anglican groups, unions, fraternal or athletic groups, or [...] staff should administer the PHQ-9) 3 04/15/2023 [facility] [place] of Occupat ional Health - Occupational Stress [...] place to sleep or slept in a [place] facility (including now)? No 04/15/2023 Personal Safety Answer Date Recorded Have you ever been in or are you currently in a harmful physical or emotional relationship or is someone making you feel afraid or unsafe? Denies 04/15/2023 Comments No Sex and Gender Information Value Date Recorded Sex Assigned at Not on file Legal Sex Female 2:58 AM HAZARDOUS MATERIAL SPECIALIST Gender Identity Female 04/16/2024 3:36 PM HAZARDOUS MATERIAL SPECIALIST Sexual Orientation Not on file Last Filed Vital Signs Vital Sign Reading Time Taken Comments Blood Pressure 142/95 04/17/2023 10:38 AM HAZARDOUS MATERIAL SPECIALIST Pulse 64 04/17/2023 10:38 AM HAZARDOUS MATERIAL SPECIALIST Temperature 37 ??C (98.6 ??F) 04/17/2023 10:38 AM HAZARDOUS MATERIAL SPECIALIST Respiratory Rate 16 04/17/2023 10:38 AM HAZARDOUS MATERIAL SPECIALIST Oxygen Saturation 99% 04/16/2023 4:20 PM HAZARDOUS MATERIAL SPECIALIST Inhaled Oxygen Concentration - - Weight 54.4 kg (120 lb) 04/15/2023 1:22 PM HAZARDOUS MATERIAL SPECIALIST Height 160 cm (5' 3 ) 04/15/2023 12:00 PM HAZARDOUS MATERIAL SPECIALIST Body Mass Index 21.26 04/15/2023 12:00 PM HAZARDOUS MATERIAL SPECIALIST Plan of Treatment Not on file Procedures Procedure Name Priority Date/Time Associated Diagnosis Comments HEPATITIS PANEL, ACUTE Routine 04/15/2023 12:25 PM HAZARDOUS MATERIAL SPECIALIST GENITAL FLUID PAP SMEAR, THIN PREP AND HPV Routine 12/22/2014 7:00 PM CDT from Last 3 Months or Most Recently Relevant to Health Maintenance Results * Hepatitis panel, acute Blood (04/15/2023 12:25 PM HAZARDOUS MATERIAL SPECIALIST) Hep A IgM Nonreactive Nonreactive [facility] ([facility]) Comment: Interpretive Data: If Hep A IgM Ab is reported as Equivocal, a new sample should be drawn in two weeks for testing. Current interpretive data was last revised on 19. Testing performed by: [address] [address] Hep B core IgM Nonreactive Nonreactive [facility] ([facility]) Comment: Interpretive Data If HepB Core IgM Ab is reported as Equivocal, a new sample should be drawn in two weeks for testing. Current interpretive data was last revised on 19. Testing performed by: [address] [address] Hep C Ab Nonreactive Nonreactive [facility] [...] last revised on 2019. Testing performed by: [address] [address] HepBsAg Nonreactive Nonreactive [facility] ([facility]) Comment:Testing performed by : [address] [address] Blood 04/15/2023 12:2 5 PM HAZARDOUS MATERIAL SPECIALIST 04/15/2023 7:08 PM HAZARDOUS MATERIAL SPECIALIST Omar Rangel MD LAB MICROBIOLOGY - GEN ERAL ORDERABLES Final Result [facility] WHIPPLE ([place]) 1 [facility] [place] [address] * (ABNORMAL) Genital fluid pap smear, thin [...] was performed using the APTIMA COMBO2 Assay ([employer] The analytical performance characteristics of this assay, when used to test SurePath specimens have been determined by [employer]. ?? Human papillomavirus RNA, High Risk E6/E7 Detected(A) Not Detected HISTORICAL RESULTS Comment: This test was performed using the APTIMA HPV Assay ([employer] ? This assay detects E6/E7 viral messenger RNA (mRNA) from 14 high-risk HPV types (16,18,31,33,35,39,45,51,52,56,58,59,66,68). Chlamydia trachomatis, PCR, genital swab NOT DETECTED NOT DETECTED HISTORICAL RESULTS Gonorrheae (GC) RNA, genital swab NOT DETECTED NOT DETECTED HISTORICAL RESULTS Genital 12/22/2014 7:00 PM CDT Narrative HISTORICAL RESULTS - 12/29/2014 2:00 AM CDT Test performed at [facility] ??[address] Director: MEGAN ALARCON MD us Historical Provider LAB CYTOLOGY ORDERABLES F inal Result HISTORICAL RESULTS from Last 3 Months or Most Recently Relevant to Health Maintenance Insurance [facility] [address] [facility] Advance Directives For more information, please contact: [phone] * Full Code (Latest Code Status on [...] in case of cardiopulmonary arrest Care Teams Medical Delivery Driver Relationship Specialty Start Date End Date Ronan Lebron MD [address] [place] [id number] PCP - General Family Medicine 09/23/16
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
--- OUTSIDE RECORDS SUMMARY | 2024-04-30 11:49 | XMS_ITS | Encounter Summary ---
Author Organization [facility] Healthcare Address [address] [place] [address] Care Team Providers Care Cold Header Name Role Phone Ronan Lebrno MD Primary Care Provider [phone] Encounter Details Date Type Department Care Team (Late st Contact Info) Description 10/15/2020 [facility] Warm Hand Off Program 1 [place], [place] [phone] Richa Luna Social History Tobacco Use Types [...] on file Legal Sex Female 2:58 AM WET AND DRY SUGAR BIN OPERATOR Gender Identity Female 04/16/2024 3:36 PM WET AND DRY SUGAR BIN OPERATOR Sexual Orientation Not on file documented as of this encounter Progress Notes * Ana [place] - 10/15/2020 3:40 PM CDT Completed retroactively for Warm Hand Off Program data documented in this encounter Plan of Treatment Not on file documented as of this encounter Visit Diagnoses Not on filedocumented in this encounter Care Teams Cold Header Relationship Specialty Start Date End Date Ronan Lebron MD [address] [place] [address] PCP - General Family Medicine 09/23/16 documented as of this encounter
--- OUTSIDE RECORDS SUMMARY | 2024-04-30 11:49 | XMS_ITS | Encounter Summary ---
Author Organization [facility] Healthcare Address [address] [place] [address] Care Team Providers Care Medical Receptionist Assistant Name Role Phone Ronan Lebron MD Primary Care Provider [phone] Encounter Details Date Type Department Care Team (Late st Contact Info) Description 04/22/2024 8:30 AM [facility] Hospital Encounter [facility] Medical Care 1 [place] [address] Rosey Martinez MD [address] [place] [address] [address] Social History Tobacco Use Types Packs/Day Years [...] Never 04/15/2023 How often do you attend scientologist or caodaism serv ices? Never 04/15/2023 Do you belong to any clubs o r organizations such as scientologist groups, unions, fraternal or athletic groups, or [...] place to sleep or slept in a skilled nursing (including now)? No 04/15/2023 Personal Safety Answer Date Recorded Have you ever been in or are you currently in a harmful physical or emotional relationship or is someone making you feel afraid or unsafe? Denies 04/15/2023 Comments No Sex and Gender Information Value Date Recorded Sex Assigned at Not on file Legal Sex Female 2:58 AM DISTRICT SUPERVISOR Gender Identity Female 04/16/2024 3:36 PM DISTRICT SUPERVISOR Sexual Orientation Not on file documented as of this encounter Plan of Treatment Not on file documented as of this encounter Visit Diagnoses Not on filedocumented in this encounter Care Teams Medical Receptionist Assistant Relationship Specialty Start Date End Date Ronan Lebron MD [address] [place] [address] PCP - General Family Medicine 09/23/16 documented as of this encounter
--- OUTSIDE RECORDS SUMMARY | 2024-04-30 11:49 | XMS_ITS | Clinical Summary ---
Author Organization [facility] al Address [address] [place] [address] Care Team Providers Care Councilor Name Role Phone Ronan Lebron MD Primary Care Provider [phone] Allergies No known active allergies Medications ibuprofen [...] gestation of 04/15/2023 History of drug abuse ([facility]) 03/01/2013 Overview (06/30/2016): History of heroin abuse Imprisonment 03/01/2013 Overview (07/01/2016): Incarceration Encounters Date Type Department Care Team Description 04/22/2024 8:30 AM HAZARD MITIGATION OFFICER Hospital Encounter [facility] Medical Care 1 [place] [address] Rosey Martinez MD 04/16/2024 [facility] Initial Eligibility [facility] Warm Hand Off Program 1 [place], [place] [phone] Richa Luna from Last 3 Months Immunizations [...] Never 04/15/2023 How often do you attend yarsani or yarsanism serv ices? Never 04/15/2023 Do you belong to any clubs o r organizations such as yarsani groups, unions, fraternal or athletic groups, or [...] staff should administer the PHQ-9) 3 04/15/2023 [facility] of Occupat ional Health - Occupational [...] place to sleep or slept in a snf (including now)? No 04/15/2023 Personal Safety Answer Date Recorded Have you ever been in or are you currently in a harmful physical or emotional relationship or is someone making you feel afraid or unsafe? Denies 04/15/2023 Comments No Sex and Gender Information Value Date Recorded Sex Assigned at Not on file Legal Sex Female 2:58 AM HAZARD MITIGATION OFFICER Gender Identity Female 04/16/2024 3:36 PM HAZARD MITIGATION OFFICER Sexual Orientation Not on file Obstetrics History [...] Comments Blood Pressure 142/95 04/17/2023 10:38 AM HAZARD MITIGATION OFFICER Pulse 64 04/17/2023 10:38 AM HAZARD MITIGATION OFFICER Temperature 37 ??C (98.6 ??F) 04/17/2023 10:38 AM HAZARD MITIGATION OFFICER Respiratory Rate 16 04/17/2023 10:38 AM HAZARD MITIGATION OFFICER Oxygen Saturation 99% 04/16/2023 4:20 PM HAZARD MITIGATION OFFICER Inhaled Oxygen Concentration - - Weight 54.4 kg (120 lb) 04/15/2023 1:22 PM HAZARD MITIGATION OFFICER Height 160 cm (5' 3 ) 04/15/2023 12:00 PM HAZARD MITIGATION OFFICER Body Mass Index 21.26 04/15/2023 12:00 PM HAZARD MITIGATION OFFICER Plan of Treatment Health Maintenance Due Date [...] HEPATITIS PANEL, ACUTE Routine 04/15/2023 12:25 PM HAZARD MITIGATION OFFICER GENITAL FLUID PAP SMEAR, THIN PREP AND HPV Routine 12/22/2014 7:00 PM CDT from Last 3 Months or Most Recently Relevant to Health Maintenance Results * Hepatitis panel, acute Blood (04/15/2023 12:25 PM HAZARD MITIGATION OFFICER) Hep A IgM Nonreactive Nonreactive [facility] ([facility]) Comment: Interpretive Data: If Hep A IgM Ab is reported as Equivocal, a new sample should be drawn in two weeks for testing. Current interpretive data was last revised on 19. Testing performed by: [address] [address] Hep B core IgM Nonreactive Nonreactive C [facility] (OMAR) Comment: Interpretive Data If HepB Core IgM Ab is reported as Equivocal, a new sample should be drawn in two weeks for testing. Current interpretive data was last revised on 19. Testing performed by: [address] [address] Hep C Ab Nonreactive Nonreactive [facility] [...] last revised on 2019. Testing performed by: [facility], [address] [place] [address]., [address] HepBsAg Nonreactive Nonreactive [facility] ([facility]) Comment:Testing performed by : [facility], [address] [place] [address]., [address] Blood 04/15/2023 12:2 5 PM HAZARD MITIGATION OFFICER 04/15/2023 7:08 PM HAZARD MITIGATION OFFICER us Omar Rangel MD LAB MICROBIOLOGY - GEN ERAL ORDERABLES Final Result [facility] (OMAR) 1 [facility] [place] [address] * (ABNORMAL) Genital fluid pap smear, thin [...] was performed using the APTIMA COMBO2 Assay ([employer] The analytical performance characteristics of this assay, when used to test SurePath specimens have been determined by [facility]. ?? Human papillomavirus RNA, High Risk E6/E7 Detected(A) Not Detected HISTORICAL RESULTS Comment: This test was performed using the APTIMA HPV Assay ([employer] ? This assay detects E6/E7 viral messenger RNA (mRNA) from 14 high-risk HPV types (16,18,31,33,35,39,45,51,52,56,58,59,66,68). Chlamydia trachomatis, PCR, genital swab NOT DETECTED NOT DETECTED HISTORICAL RESULTS Gonorrheae (GC) RNA, genital swab NOT DETECTED NOT DETECTED HISTORICAL RESULTS Genital 12/22/2014 7:00 PM CDT Narrative HISTORICAL RESULTS - 12/29/2014 2:00 AM CDT Test performed at [address] ??[id number] Director: MEGAN ALARCON MD us Historical Provider LAB CYTOLOGY ORDERABLES F inal Result HISTORICAL RESULTS from Last 3 Months or Most Recently Relevant to Health Maintenance Insurance [facility] OTHER Address: [address] [place] [id number] [employer] [facility] Advance Directives For more information, please contact: [phone] * Full Code (Latest Code Status on [...] in case of cardiopulmonary arrest Care Teams Councilor Relationship Specialty Start Date End Date Ronan Lebron MD [address] [place] [address] PCP - General Family Medicine 09/23/16
--- NOTE | 2024-05-03 12:51 | PC.NURSE ---
Final urine culture report; Escherichia coli, Patient discharged on cephalexin, culture susceptible. No further action or change in treatment needed per ERP Dr. Veliz
== END 2024-04-30 11:42 | disposition left against medical advice (07) ==
PROVIDERS: Emergency Provider Emergency Medicine
DX: R07.89 Other chest pain (principal); N39.0 Urinary tract infection, site not specified; F11.10 Opioid abuse, uncomplicated; F15.10 Other stimulant abuse, uncomplicated
CPT/HCPCS: 71045; 80307; 81001; 81025; 87086; 87186; 93005; 99283; J2003

== ENCOUNTER 2024-05-01 04:51 | Emergency (ER) | payer OTHER, SELFPAY ==
--- NOTE | ~2024-05-01 | XR_ITS ---
Portable chest x-ray Comparison: 04/30/2024 Clinical History: Chest pain Findings: Lungs are clear, without focal consolidation or pleural effusion. Cardiomediastinal silho uette is stable. Bones and soft tissues are unremarkable. Impression: Normal chest. Reviewed, dictated and finalized at [facility]. 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
--- OUTSIDE RECORDS SUMMARY | 2024-05-01 04:53 | XMS_ITS | Encounter Summary ---
Author Organization [facility] Healthcare Address [address] [place] [address] Care Team Providers Care Baker Operator Automatic Name Role Phone Ronan Lebron MD Primary Care Provider [phone] Encounter Details Date Type Department Care Team (Late st Contact Info) Description 10/15/2020 [facility] Warm Hand Off Program 1 [place], [place] [phone] Richa Luna Social History Tobacco Use Types [...] on file Legal Sex Female 2:58 AM REGULATORY AFFAIRS MANAGER Gender Identity Female 04/16/2024 3:36 PM REGULATORY AFFAIRS MANAGER Sexual Orientation Not on file documented as of this encounter Progress Notes * Ana [place] - 10/15/2020 3:40 PM CDT Completed retroactively for Warm Hand Off Program data documented in this encounter Plan of Treatment Not on file documented as of this encounter Visit Diagnoses Not on filedocumented in this encounter Care Teams Baker Operator Automatic Relationship Specialty Start Date End Date Ronan Lebron MD [address] [place] [address] PCP - General Family Medicine 09/23/16 documented as of this encounter
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
--- OUTSIDE RECORDS SUMMARY | 2024-05-01 04:53 | XMS_ITS | Encounter Summary ---
Author Organization [facility] Healthcare Address [address] [place] [address] Care Team Providers Care Rampman Name Role Phone Ronan Lebron MD Primary Care Provider [phone] Encounter Details Date Type Department Care Team (Late st Contact Info) Description 04/22/2024 8:30 AM [facility] Hospital Encounter [facility] Medical Care 1 [place] [address] Rosey Martinez MD [address] [place] [address] [address] Social History Tobacco Use Types Packs/Day Years [...] Never 04/15/2023 How often do you attend roman catholic or alevism serv ices? Never 04/15/2023 Do you belong to any clubs o r organizations such as roman catholic groups, unions, fraternal or athletic groups, or [...] place to sleep or slept in a group home (including now)? No 04/15/2023 Personal Safety Answer Date Recorded Have you ever been in or are you currently in a harmful physical or emotional relationship or is someone making you feel afraid or unsafe? Denies 04/15/2023 Comments No Sex and Gender Information Value Date Recorded Sex Assigned at Not on file Legal Sex Female 2:58 AM RETROFIT INSTALLER Gender Identity Female 04/16/2024 3:36 PM RETROFIT INSTALLER Sexual Orientation Not on file documented as of this encounter Plan of Treatment Not on file documented as of this encounter Visit Diagnoses Not on filedocumented in this encounter Care Teams Rampman Relationship Specialty Start Date End Date Ronan Lebron MD [address] [place] [address] PCP - General Family Medicine 09/23/16 documented as of this encounter
--- OUTSIDE RECORDS SUMMARY | 2024-05-01 04:53 | XMS_ITS | Referral Summary ---
Author Organization [facility] al Address [address] [place] [address] Care Team Providers Care Hadoop Java Developer Name Role Phone Ronan Lebron MD Primary Care Provider Encounters Date Type Department Care Team Description 04/22/2024 8:30 AM REMITTANCE CLERK Hospital Encounter [facility] Medical Care 1 [place] [address] Rosey Martinez MD 04/16/2024 [facility] Initial Eligibility [facility] Warm Hand Off Program 1 [place], [place] [phone] LunaRicha palacios from Last 3 Months Allergies [...] gestation of 04/15/2023 History of drug abuse ([facility]) 03/01/2013 Overview (06/30/2016): History of heroin abuse [...] Never 04/15/2023 How often do you attend pentecostal or adventism serv ices? Never 04/15/2023 Do you belong to any clubs o r organizations such as pentecostal groups, unions, fraternal or athletic groups, or [...] staff should administer the PHQ-9) 3 04/15/2023 [facility] [place] of Occupat ional Health - Occupational Stress [...] on file Legal Sex Female 2:58 AM REMITTANCE CLERK Gender Identity Female 04/16/2024 3:36 PM REMITTANCE CLERK Sexual Orientation Not on file Last Filed Vital Signs Vital Sign Reading Time Taken Comments Blood Pressure 142/95 04/17/2023 10:38 AM REMITTANCE CLERK Pulse 64 04/17/2023 10:38 AM REMITTANCE CLERK Temperature 37 ??C (98.6 ??F) 04/17/2023 10:38 AM REMITTANCE CLERK Respiratory Rate 16 04/17/2023 10:38 AM REMITTANCE CLERK Oxygen Saturation 99% 04/16/2023 4:20 PM REMITTANCE CLERK Inhaled Oxygen Concentration - - Weight 54.4 kg (120 lb) 04/15/2023 1:22 PM REMITTANCE CLERK Height 160 cm (5' 3 ) 04/15/2023 12:00 PM REMITTANCE CLERK Body Mass Index 21.26 04/15/2023 12:00 PM REMITTANCE CLERK Plan of Treatment Not on file Procedures Procedure Name Priority Date/Time Associated Diagnosis Comments HEPATITIS PANEL, ACUTE Routine 04/15/2023 12:25 PM REMITTANCE CLERK GENITAL FLUID PAP SMEAR, THIN PREP AND HPV Routine 12/22/2014 7:00 PM CDT from Last 3 Months or Most Recently Relevant to Health Maintenance Results * Hepatitis panel, acute Blood (04/15/2023 12:25 PM REMITTANCE CLERK) Hep A IgM Nonreactive Nonreactive [facility] ([facility]) Comment: Interpretive Data: If Hep A IgM Ab is reported as Equivocal, a new sample should be drawn in two weeks for testing. Current interpretive data was last revised on 19. Testing performed by: [address] [address] Hep B core IgM Nonreactive Nonreactive [facility] ([facility]) Comment: Interpretive Data If HepB Core IgM Ab is reported as Equivocal, a new sample should be drawn in two weeks for testing. Current interpretive data was last revised on 19. Testing performed by: [address] [address] Hep C Ab Nonreactive Nonreactive [facility] [...] last revised on 2019. Testing performed by: [address] [address] HepBsAg Nonreactive Nonreactive [facility] ([facility]) Comment:Testing performed by : [address] [address] Blood 04/15/2023 12:2 5 PM REMITTANCE CLERK 04/15/2023 7:08 PM REMITTANCE CLERK Omar Rangel MD LAB MICROBIOLOGY - GEN ERAL ORDERABLES Final Result [facility] ([place]) 1 [facility] Department [place] [address] * (ABNORMAL) Genital fluid pap smear, thin [...] was performed using the APTIMA COMBO2 Assay ([employer] The analytical performance characteristics of this assay, when used to test SurePath specimens have been determined by [employer]. ?? Human papillomavirus RNA, High Risk E6/E7 Detected(A) Not Detected HISTORICAL RESULTS Comment: This test was performed using the APTIMA HPV Assay ([employer] ? This assay detects E6/E7 viral messenger RNA (mRNA) from 14 high-risk HPV types (16,18,31,33,35,39,45,51,52,56,58,59,66,68). Chlamydia trachomatis, PCR, genital swab NOT DETECTED NOT DETECTED HISTORICAL RESULTS Gonorrheae (GC) RNA, genital swab NOT DETECTED NOT DETECTED HISTORICAL RESULTS Genital 12/22/2014 7:00 PM CDT Narrative HISTORICAL RESULTS - 12/29/2014 2:00 AM CDT Test performed at [facility] ??[address] Director: MEGAN ALARCON MD us Historical Provider LAB CYTOLOGY ORDERABLES F inal Result HISTORICAL RESULTS from Last 3 Months or Most Recently Relevant to Health Maintenance Insurance [facility] [employer] [facility] Advance Directives For more information, please contact: [phone] * Full Code (Latest Code Status on [...] in case of cardiopulmonary arrest Care Teams Hadoop Java Developer Relationship Specialty Start Date End Date Ronan Lebron MD [address] [place] [address] PCP - General Family Medicine 09/23/16
--- OUTSIDE RECORDS SUMMARY | 2024-05-01 04:53 | XMS_ITS | Clinical Summary ---
Author Organization [facility] al Address [address] [place] [address] Care Team Providers Care Finishing Pan Operator Name Role Phone Ronan Lebron MD Primary Care Provider [phone] Allergies No known active allergies Medications ibuprofen [...] gestation of 04/15/2023 History of drug abuse ([facility]) 03/01/2013 Overview (06/30/2016): History of heroin abuse Imprisonment 03/01/2013 Overview (07/01/2016): Incarceration Encounters Date Type Department Care Team Description 04/22/2024 8:30 AM ESTATE AND TRUST TAX PRINCIPAL Hospital Encounter [facility] Medical Care 1 [place] [address] Rosey Martinez MD 04/16/2024 [facility] Initial Eligibility [facility] Warm Hand Off Program 1 [place], [place] [phone] Richa Luna from Last 3 Months Immunizations [...] Never 04/15/2023 How often do you attend worship or muslim serv ices? Never 04/15/2023 Do you belong to any clubs o r organizations such as worship groups, unions, fraternal or athletic groups, or [...] staff should administer the PHQ-9) 3 04/15/2023 [facility] of Occupat ional Health - [...] place to sleep or slept in a prison (including now)? No 04/15/2023 Personal Safety Answer Date Recorded Have you ever been in or are you currently in a harmful physical or emotional relationship or is someone making you feel afraid or unsafe? Denies 04/15/2023 Comments No Sex and Gender Information Value Date Recorded Sex Assigned at Not on file Legal Sex Female 2:58 AM ESTATE AND TRUST TAX PRINCIPAL Gender Identity Female 04/16/2024 3:36 PM ESTATE AND TRUST TAX PRINCIPAL Sexual Orientation Not on file Obstetrics History [...] Comments Blood Pressure 142/95 04/17/2023 10:38 AM ESTATE AND TRUST TAX PRINCIPAL Pulse 64 04/17/2023 10:38 AM ESTATE AND TRUST TAX PRINCIPAL Temperature 37 ??C (98.6 ??F) 04/17/2023 10:38 AM ESTATE AND TRUST TAX PRINCIPAL Respiratory Rate 16 04/17/2023 10:38 AM ESTATE AND TRUST TAX PRINCIPAL Oxygen Saturation 99% 04/16/2023 4:20 PM ESTATE AND TRUST TAX PRINCIPAL Inhaled Oxygen Concentration - - Weight 54.4 kg (120 lb) 04/15/2023 1:22 PM ESTATE AND TRUST TAX PRINCIPAL Height 160 cm (5' 3 ) 04/15/2023 12:00 PM ESTATE AND TRUST TAX PRINCIPAL Body Mass Index 21.26 04/15/2023 12:00 PM ESTATE AND TRUST TAX PRINCIPAL Plan of Treatment Health Maintenance Due Date [...] HEPATITIS PANEL, ACUTE Routine 04/15/2023 12:25 PM ESTATE AND TRUST TAX PRINCIPAL GENITAL FLUID PAP SMEAR, THIN PREP AND HPV Routine 12/22/2014 7:00 PM CDT from Last 3 Months or Most Recently Relevant to Health Maintenance Results * Hepatitis panel, acute Blood (04/15/2023 12:25 PM ESTATE AND TRUST TAX PRINCIPAL) Hep A IgM Nonreactive Nonreactive [facility] ([facility]) Comment: Interpretive Data: If Hep A IgM Ab is reported as Equivocal, a new sample should be drawn in two weeks for testing. Current interpretive data was last revised on 19. Testing performed by: [address] [address] Hep B core IgM Nonreactive Nonreactive C [facility] (OMAR) Comment: Interpretive Data If HepB Core IgM Ab is reported as Equivocal, a new sample should be drawn in two weeks for testing. Current interpretive data was last revised on 19. Testing performed by: [address] [address] Hep C Ab Nonreactive Nonreactive [facility] [...] last revised on 2019. Testing performed by: [facility], [address] [place] [address]., [address] HepBsAg Nonreactive Nonreactive [facility] (OMAR) Comment:Testing performed by : [facility], [address] [place] [address]., [address] Blood 04/15/2023 12:2 5 PM ESTATE AND TRUST TAX PRINCIPAL 04/15/2023 7:08 PM ESTATE AND TRUST TAX PRINCIPAL us Omar Rangel MD LAB MICROBIOLOGY - GEN ERAL ORDERABLES Final Result [facility] (OMAR) 1 [facility] [place] [address] * (ABNORMAL) Genital fluid pap smear, thin [...] was performed using the APTIMA COMBO2 Assay ([employer] The analytical performance characteristics of this assay, when used to test SurePath specimens have been determined by [employer]. ?? Human papillomavirus RNA, High Risk E6/E7 Detected(A) Not Detected HISTORICAL RESULTS Comment: This test was performed using the APTIMA HPV Assay ([employer] ? This assay detects E6/E7 viral messenger RNA (mRNA) from 14 high-risk HPV types (16,18,31,33,35,39,45,51,52,56,58,59,66,68). Chlamydia trachomatis, PCR, genital swab NOT DETECTED NOT DETECTED HISTORICAL RESULTS Gonorrheae (GC) RNA, genital swab NOT DETECTED NOT DETECTED HISTORICAL RESULTS Genital 12/22/2014 7:00 PM CDT Narrative HISTORICAL RESULTS - 12/29/2014 2:00 AM CDT Test performed at [address] ??[id number] Director: MEGAN ALARCON MD us Historical Provider LAB CYTOLOGY ORDERABLES F inal Result HISTORICAL RESULTS from Last 3 Months or Most Recently Relevant to Health Maintenance Insurance [facility] [employer] [facility] Advance Directives For more information, please contact: [phone] * Full Code (Latest Code Status on [...] in case of cardiopulmonary arrest Care Teams Finishing Pan Operator Relationship Specialty Start Date End Date Ronan Lebron MD [address] [place] [address] PCP - General Family Medicine 09/23/16
[2024-05-01 04:56] VITALS: BP 138/82; PULSE 78; RESP 18; TEMP 36.6; O2SAT 98
--- NOTE | 2024-05-01 04:56 | ED_ITS ---
HPI - Chest Pain General Chief Complaint: Chest Pain Stated Complaint: chest pain Time Seen by Provider: 05/01/24 04:56 Source: patient Mode of arrival: ambulatory Limitations: no limitations History of Present Illness HPI narrative: Patient is a 33-year-old female with chest pain. She is here for further evaluation. patient uses meth and fentanyl from time to time. She woke up with chest pain again this morning. She left AMA earlier yesterday. when she was here earlier yesterday she had UTI and I gave her prescription to the pharmacy for Keflex. complaint: chest pain and chest heaviness Pertinent past history: other ( Illicit drug use and prior IVDA) Onset (ago): day(s) (2) Timing of current episode: episodic Prior episodes: Yes Onset: during rest and during exertion Pain location: substernal and left chest Pain radiation: none Severity: mild Pain scale (0-10): 3 Quality: sharp Relieving factors: nothing Exacerbating factors: nothing Context: other ( patient has chest pain for the past 2 days and is concerned and here for evaluation) Associated symptoms: other ( none) Treatment prior to arrival: none Risk Factors Coronary artery disease risk factors: smoking history Thoracic aortic dissection risk factors: none Related Data On Oral Contraceptives: Yes Home Medications ?Medication ?Instructions ?Recorded ?Confirmed ?Last Taken ?Type bupropion HCl 150 mg 24 hr tablet, 150 mg PO DAILY 04/05/24 04/05/24 04/04/24 History extended release hydroxyzine HCl 25 mg tablet 25 mg PO .daily 04/05/24 04/05/24 04/04/24 History norethindrone 1.5 mg-ethinyl 1 tablet PO DAILY 04/05/24 04/05/24 Unknown History estradiol 30 mcg(21)/iron 75 mg(7) tablet (Veronica Fe 1.5/30 (28)) Allergies Allergy/AdvReac Type Severity Reaction Status Date / Time No Known Allergies Allergy Verified 04/30/24 10:29 Review of Systems 2 Review of Systems: All systems reviewed & are unremarkable except as noted in HPI and below Constitutional: Constitutional: Reports no additional constitutional complaints Eyes: Eyes: Reports no additional eye complaints ENT: Reports system reviewed and no additional complaints, except as documented Cardiovascular: Cardiovascular: Reports no additional cardiovascular complaints Respiratory: Respiratory: Reports no additional respiratory complaints Gastrointestinal: Gastrointestinal: Reports no additional gastrointestinal complaints Genitourinary: Genitourinary: Reports no additional female genitourinary complaints Musculoskeletal: Musculoskeletal: Reports no additional musculoskeletal complaints Integumentary/Breasts: Skin/Breast: Reports system reviewed and no additional complaints, except as docu Neurologic: Reports system reviewed and no additional complaints, except as documented Psychiatric: Psychiatric: Reports no additional psychiatric complaints Endocrine: Endocrine: Reports no additional endocrine complaints Hematologic/Lymphatic: Hematologic/Lymphatic: Reports no additional hematologic/lymphatic complaints Allergic/Immunologic: Allergic/Immunologic: Reports no additional allergic/immunologic complaints Exam 2 Const: General: healthy appearing Nutritional Appearance: well nourished Orientation/consciousness: patient oriented x3 HENMT: Head: normal to inspection Ears: external ears normal F yadira/Nose/Sinus: Normal external nose present Eyes: Conjunctivae: conjunctivae normal Pupils: Equal, round and reactive pupils present EOM: EOMs intact bilaterally Neck: Neck: normal visual inspection Chest: Chest palpation & inspection: normal inspection of the chest Resp: Effort & Inspection: normal respiratory effort and not labored A uscultation: clear to auscultation bilaterally and no crackles Cardio: Rate: regular rate Rhythm: regular rhythm Heart sounds: no murmurs GI: Inspection: non-distended GI Palp: Yes Soft to palpation and No Tenderness to palpation present (GI) Auscultation: normal bowel sounds : General: Yes bladder normal to palpation Back/Spine/Pelvis: Back: no CVA tenderness Skin: General skin exam: normal color Rashes: no rashes Wounds: no wounds Neuro: General: patient oriented x3 Cranial nerves: Yes Nystagmus not present Speech: normal speech Extrem: General: normal to inspection Psych: Mental Status: mental status grossly normal Affect: normal affect Course Vital Signs Vital signs: Vital Signs Temperature 36.6 C 05/01/24 04:56 Pulse Rate 78 05/01/24 04:56 Respiratory Rate 18 05/01/24 04:56 Blood Pressure 138/82 05/01/24 04:56 Pulse Oximetry 98 05/01/24 04:56 Oxygen Delivery Room Air 05/01/24 04:56 Temperature 36.6 C 05/01/24 04:56 Pulse Rate 78 05/01/24 04:56 Respiratory Rate 18 05/01/24 04:56 Blood Pressure 138/82 05/01/24 04:56 Pulse Oximetry 98 05/01/24 04:56 Oxygen Delivery Room Air 05/01/24 04:56 Procedures Other Procedure Procedure 1: Other Procedure: Left femoral vein accessed by me for blood as she had no other options for getting IV blood; area cleaned with chlorhexidine; 20 gauge needle used with a large syringe and placed into the left femoral vein after marking the area medially to the femoral artery; no complications; good blood return; patient tolerated well; assisted by female nurse MDM - Chest Pain MDM Narrative Medical decision making narrative: patient is a 33-year-old female who left AMA earlier due to the fact that we cannot get an IV from her prior IVDA came back with continued chest pain and will allow the femoral stick at this time. We will do a cardiac workup. Lab Data Attestation: I reviewed the patient's lab results. 05/01/24 05:30 05/01/24 05:30 Labs: Lab Results 05/01/24 05/01/24 05/01/24 Range/Units 05:30 06:07 06:17 WBC 11.3 H (4.8-10.8) K/mm3 RBC 4.13 L (4.20-5.40) M/mm3 Hgb 11.9 L (12.0-15.0) g/dL Hct 36.0 (35.0-49.0) % MCV 87.2 (78.0-102.0) fL MCH 28.8 (27.0-31.0) pg MCHC 33.1 (32-36) g/dL RDW 14.6 H (11.6-14.4) % Plt Count 275 (150-420) K/mm3 MPV 10.4 (9.2-11.8) fl Immature Gran % (Auto) 0.4 H (0.0-0.0) % Neut % (Auto) 46.8 L (50.0-70.0) % Lymph % (Auto) 42.2 H (18.0-42.0) % Calhoun % (Auto) 8.2 (2.0-11.0) % Eos % (Auto) 1.7 (1.0-6.0) % Baso % (Auto) 0.7 (0.0-1.0) % Lymph # (Auto) 4.78 H (1.10-4.50) K/mm3 Calhoun # (Auto) 0.93 H (0.10-0.90) K/mm3 Eos # (Auto) 0.19 (0.02-0.50) K/mm3 Baso # (Auto) 0.08 (0.00-0.10) K/mm3 Abs Immat Gran (auto) 0.05 H (0.00-0.00) K/mm3 Absolute Neuts (auto) 5.30 (1.70-7.20) K/mm3 Absolute Nucleated RBC 0.00 (0.00-0.00) K/mm3 Nucleated RBC % 0.0 (0-0.0) % PT 10.6 (9.50-12.1) Seconds INR 1.0 APTT 34.3 H (23.9-30.70) Sec D-Dimer 0.19 (0.19-0.50) mg/L Sodium 138 (136-145) mmol/L Potassium 3.8 (3.5-5.1) mmol/L Chloride 103 (98-108) mmol/L Carbon Dioxide 25 (21-32) mmol/L Anion Gap 10 (4-12) mmol/L BUN 13 (7-18) mg/dL Creatinine 0.75 (0.55-1.02) mg/dL Estim Creat Clear Calc 70 ml/min Estimated GFR > 60 (59 - ) Glucose 91 (70-99) mg/dL Calculated Osmolality 286 (285-295) mOsm/kg Calcium 8.8 (8.5-10.1) mg/dL Total Bilirubin 0.2 (0.00-1.00) mg/dL AST 17 (15-37) U/L ALT 22 (14-59) U/L Alkaline Phosphatase 78 (46-116) U/L Troponin I < 4.0 (0.00-60.4) ng/L NT-Pro-B Natriuret Pep 21 (0-125) pg/mL Total Protein 6.6 (6.4-8.2) g/dL Albumin 3.4 (3.4-5.0) g/dL Lipase 39 (16-77) U/L Urine Color Light yellow (Yellow) Urine Appearance Sl cloudy A (Clear) Urine pH 6.0 (5.0-8.0) Ur Specific [place] >= 1.030 H (1.010-1.020) Urine Protein Negative (Negative) Urine Glucose (UA) Negative (Negative) Urine Ketones Negative (Negative) Ur Blood (Man) Negative (Negative) Urine Nitrate Positive H (Negative) Urine Bilirubin Negative (Negative) Urine Urobilinogen 0.2 (0.2-1.0) mg/dL Ur Leukocyte Esterase Negative (Negative) Urine RBC None seen (0-2) /hpf Urine WBC 6-10 H (0-3) /hpf Ur Squamous Epith Cells Few (Few) /hpf Urine Bacteria 4+ H (None) /hpf Urine Test Negative Urine Opiates Screen Negative (Negative) Urine Methadone Screen Negative (Negative) Ur Barbiturates Screen Negative (Negative) Ur Phencyclidine Scrn Negative (Negative) Ur Amphetamine Screen Positive A (Negative) U Benzodiazepines Scrn Negative (Negative) Urine Cocaine Screen Negative (Negative) U Cannabinoids Screen Positive A (Negative) Imaging Data Attestation: I personally reviewed and interpreted this imaging study as follows: Radiologist's impression: chest x-ray is negative for acute process ECG Data EKG #1: Attestation: I personally reviewed and interpreted this ECG as follows: ECG completion date: 05/01/24 ECG completion time: 05:53 EKG Interpretation: normal rate, sinus rhythm, no ectopy, no ST changes, normal QRS, normal QT and NL axis Discharge Plan Discharge Clinical Impression: Atypical chest pain, Methamphetamine abuse UTI (urinary tract infection) Qualifiers: Urinary tract infection type: acute cystitis Hematuria presence: without hematuria Qualified Code(s): N30.00 - Acute cystitis without hematuria Patient Disposition: Home, Self-Care Condition: Stable Instructions: Antibiotic Form, Chest Pain (ED) Additional Instructions: Please follow-up with the primary doctor and we are giving you a sheet on some doctors to follow up with to talk about anxiety. They can also do further workup for chest pain. Make sure to take all the antibiotics given to you on the last visit. You still have a UTI at this time. Patient Language: Egyptian Prescriptions: No Action bupropion HCl 150 mg tablet extended release 24 hr 150 mg PO DAILY hydroxyzine HCl 25 mg tablet 25 mg PO .daily norethindrone-e.estradiol-iron [Veronica Fe 1.5/30 (28)] 1.5 mg-30 mcg (21)/75 mg (7) tablet 1 tablet PO DAILY cephalexin 500 mg capsule 500 mg PO BID 7 Days Qty: 14 0RF Follow-up/Referrals: UNKNOWN,DOCTOR [Primary Care Provider] - Time of Disposition: 06:48
--- NOTE | 2024-05-01 04:56 | ECG_ITS ---
Test Date: 2024-05-01 05:06:45 Measurements Intervals [place] Rate: 79 P: 57 ME: 141 QRS: 1 QRSD: 106 T: 62 QT: 390 QTc: 449 Interpretive Statements SINUS RHYTHM POSSIBLE LEFT ATRIAL ENLARGEMENT INCOMPLETE RIGHT BUNDLE BRANCH BLOCK DELAYED PRECORDIAL R/S TRANSITION MODERATE T-WAVE ABNORMALITY, CONSIDER ANTERIOR ISCHEMIA ABNORMAL ECG Compared to ECG 04/30/2024 10:25:34 HEART RATE HAS DECREASED T WAVE ABNORMALITY NOW PRESENT Electronically Signed On 05-01-2024 07:13:11 WAGON DRILLER by Fab Liriano D.O.
--- NOTE | 2024-05-01 05:07 | PC.NURSE ---
XRAY AT THE BEDSIDE
[2024-05-01] MEDS: LIDOCAINE 1% LOCAL INJ 10 ML VIAL 5 ML INFILTRATE (05:10)
--- OUTSIDE RECORDS SUMMARY | 2024-05-01 05:16 | XMS_ITS | Encounter Summary ---
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
--- OUTSIDE RECORDS SUMMARY | 2024-05-01 05:16 | XMS_ITS | Referral Summary ---
Author Organization [facility] al Address [address] [place] [address] Care Team Providers Care Manager Academic Name Role Phone Ronan Lebron MD Primary Care Provider [phone] Encounters Date Type Department Care Team Description 04/22/2024 8:30 AM PATIENT MANAGER Hospital Encounter [facility] Medical Care [address] [place] [address] Rosey Martinez MD 04/16/2024 [facility] Initial Eligibility [facility] Warm Hand Off Program [address] [place], [place] [phone] LunaRicha palacios from Last 3 Months Allergies [...] gestation of 04/15/2023 History of drug abuse ([facility]) 03/01/2013 Overview (06/30/2016): History of [...] Never 04/15/2023 How often do you attend christianity or yazdanism serv ices? Never 04/15/2023 Do you belong to any clubs o r organizations such as christianity groups, unions, fraternal or athletic groups, or [...] staff should administer the PHQ-9) 3 04/15/2023 [facility] of Occupat ional Health - Occupational Stress [...] place to sleep or slept in a intermediate (including now)? No 04/15/2023 Personal Safety Answer Date Recorded Have you ever been in or are you currently in a harmful physical or emotional relationship or is someone making you feel afraid or unsafe? Denies 04/15/2023 Comments No Sex and Gender Information Value Date Recorded Sex Assigned at Not on file Legal Sex Female 2:58 AM PATIENT MANAGER Gender Identity Female 04/16/2024 3:36 PM PATIENT MANAGER Sexual Orientation Not on file Last Filed Vital Signs Vital Sign Reading Time Taken Comments Blood Pressure 142/95 04/17/2023 10:38 AM PATIENT MANAGER Pulse 64 04/17/2023 10:38 AM PATIENT MANAGER Temperature 37 ??C (98.6 ??F) 04/17/2023 10:38 AM PATIENT MANAGER Respiratory Rate 16 04/17/2023 10:38 AM PATIENT MANAGER Oxygen Saturation 99% 04/16/2023 4:20 PM PATIENT MANAGER Inhaled Oxygen Concentration - - Weight 54.4 kg (120 lb) 04/15/2023 1:22 PM PATIENT MANAGER Height 160 cm (5' 3 ) 04/15/2023 12:00 PM PATIENT MANAGER Body Mass Index 21.26 04/15/2023 12:00 PM PATIENT MANAGER Plan of Treatment Not on file Procedures Procedure Name Priority Date/Time Associated Diagnosis Comments HEPATITIS PANEL, ACUTE Routine 04/15/2023 12:25 PM PATIENT MANAGER GENITAL FLUID PAP SMEAR, THIN PREP AND HPV Routine 12/22/2014 7:00 PM CDT from Last 3 Months or Most Recently Relevant to Health Maintenance Results * Hepatitis panel, acute Blood (04/15/2023 12:25 PM PATIENT MANAGER) Hep A IgM Nonreactive Nonreactive [facility] ([facility]) Comment: Interpretive Data: If Hep A IgM Ab is reported as Equivocal, a new sample should be drawn in two weeks for testing. Current interpretive data was last revised on 19. Testing performed by: [address] [id number] Hep B core IgM Nonreactive Nonreactive [facility] ([facility]) Comment: Interpretive Data If HepB Core IgM Ab is reported as Equivocal, a new sample should be drawn in two weeks for testing. Current interpretive data was last revised on 19. Testing performed by: [address] [address] Hep C Ab Nonreactive Nonreactive [facility] [...] last revised on 2019. Testing performed by: [address] [address] HepBsAg Nonreactive Nonreactive [facility] ([facility]) Comment:Testing performed by : [address] [address] Blood 04/15/2023 12:2 5 PM PATIENT MANAGER 04/15/2023 7:08 PM PATIENT MANAGER Omar Rangel MD LAB MICROBIOLOGY - GEN ERAL ORDERABLES Final Result [facility] ([place]) 1 [facility] Department [place] [address] * (ABNORMAL) Genital fluid pap smear, thin [...] was performed using the APTIMA COMBO2 Assay ([employer] The analytical performance characteristics of this assay, when used to test SurePath specimens have been determined by [facility]. ?? Human papillomavirus RNA, High Risk E6/E7 Detected(A) Not Detected HISTORICAL RESULTS Comment: This test was performed using the APTIMA HPV Assay ([employer] ? This assay detects E6/E7 viral messenger RNA (mRNA) from 14 high-risk HPV types (16,18,31,33,35,39,45,51,52,56,58,59,66,68). Chlamydia trachomatis, PCR, genital swab NOT DETECTED NOT DETECTED HISTORICAL RESULTS Gonorrheae (GC) RNA, genital swab NOT DETECTED NOT DETECTED HISTORICAL RESULTS Genital 12/22/2014 7:00 PM CDT Narrative HISTORICAL RESULTS - 12/29/2014 2:00 AM CDT Test performed at [id number] ??[id number] Director: MEGAN ALARCON MD us Historical Provider LAB CYTOLOGY ORDERABLES F inal Result HISTORICAL RESULTS from Last 3 Months or Most Recently Relevant to Health Maintenance Insurance [facility] Advance Directives For more information, please contact: [phone] * Full Code (Latest Code Status on [...] in case of cardiopulmonary arrest Care Teams Manager Academic Relationship Specialty Start Date End Date Ronan Lebron MD [address] [place] [id number] PCP - General Family Medicine 09/23/16
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
--- OUTSIDE RECORDS SUMMARY | 2024-05-01 05:16 | XMS_ITS | Encounter Summary ---
Author Organization [facility] Healthcare Address [address] [place] [address] Care Team Providers Care Leaf Stripper Name Role Phone Ronan Lebron MD Primary Care Provider [phone] Encounter Details Date Type Department Care Team (Late st Contact Info) Description 04/22/2024 8:30 AM [facility] Hospital Encounter [facility] Medical Care [address] [place] [address] Rosey Martinez MD [address] [place] [address] [address] Social History Tobacco Use Types Packs/Day Years [...] Never 04/15/2023 How often do you attend samaritan or sabianist serv ices? Never 04/15/2023 Do you belong to any clubs o r organizations such as samaritan groups, unions, fraternal or athletic groups, or [...] staff should administer the PHQ-9) 3 04/15/2023 [facility] of Occupat ional Health - Occupational Stress [...] place to sleep or slept in a senior living (including now)? No 04/15/2023 Personal Safety Answer Date Recorded Have you ever been in or are you currently in a harmful physical or emotional relationship or is someone making you feel afraid or unsafe? 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
--- OUTSIDE RECORDS SUMMARY | 2024-05-01 05:16 | XMS_ITS | Clinical Summary ---
Author Organization [facility] al Address [address] [place] [address] Care Team Providers Care [employer] Name Role Phone Ronan Lebron MD Primary Care Provider [phone] Allergies No known active allergies Medications ibuprofen [...] gestation of 04/15/2023 History of drug abuse ([facility]) 03/01/2013 Overview (06/30/2016): History of heroin abuse Imprisonment 03/01/2013 Overview (07/01/2016): Incarceration Encounters Date Type Department Care Team Description 04/22/2024 8:30 AM PATIENT COMPANION Hospital Encounter [facility] [address] [place] [address] Rosey Martinez MD 04/16/2024 [facility] Initial Eligibility [facility] [address] [place], [place] [phone] Richa Luna from Last 3 Months Immunizations [...] Never 04/15/2023 How often do you attend nondenominational or jew serv ices? Never 04/15/2023 Do you belong to any clubs o r organizations such as nondenominational groups, unions, fraternal or athletic groups, or [...] should administer the PHQ-9) 3 04/15/2023 [facility] - Occupational [...] file Legal Sex Female 2:58 AM PATIENT COMPANION Gender Identity Female 04/16/2024 3:36 PM PATIENT COMPANION Sexual Orientation Not on file Obstetrics History [...] Blood Pressure 142/95 04/17/2023 10:38 AM PATIENT COMPANION Pulse 64 04/17/2023 10:38 AM PATIENT COMPANION Temperature 37 ??C (98.6 ??F) 04/17/2023 10:38 AM PATIENT COMPANION Respiratory Rate 16 04/17/2023 10:38 AM PATIENT COMPANION Oxygen Saturation 99% 04/16/2023 4:20 PM PATIENT COMPANION Inhaled Oxygen Concentration - - Weight 54.4 kg (120 lb) 04/15/2023 1:22 PM PATIENT COMPANION Height 160 cm (5' 3 ) 04/15/2023 12:00 PM PATIENT COMPANION Body Mass Index 21.26 04/15/2023 12:00 PM PATIENT COMPANION Plan of Treatment Health Maintenance Due Date [...] PANEL, ACUTE Routine 04/15/2023 12:25 PM PATIENT COMPANION GENITAL FLUID PAP SMEAR, THIN PREP AND HPV Routine 12/22/2014 7:00 PM CDT from Last 3 Months or Most Recently Relevant to Health Maintenance Results * Hepatitis panel, acute Blood (04/15/2023 12:25 PM PATIENT COMPANION) Hep A IgM Nonreactive Nonreactive [facility] ([facility]) Comment: Interpretive Data: If Hep A IgM Ab is reported as Equivocal, a new sample should be drawn in two weeks for testing. Current interpretive data was last revised on 19. Testing performed by: [address] [id number] Hep B core IgM Nonreactive Nonreactive [facility] ([facility]) Comment: Interpretive Data If HepB Core IgM Ab is reported as Equivocal, a new sample should be drawn in two weeks for testing. Current interpretive data was last revised on 19. Testing performed by: [address] [address] Hep C Ab Nonreactive Nonreactive [facility] [...] last revised on 2019. Testing performed by: [facility], [address] [place] [address]., [id number] HepBsAg Nonreactive Nonreactive [facility] ([facility]) Comment:Testing performed by : [facility], [address] [place] [address]., [id number] Blood 04/15/2023 12:2 5 PM PATIENT COMPANION 04/15/2023 7:08 PM PATIENT COMPANION us Omar Rangel MD LAB MICROBIOLOGY - GEN ERAL ORDERABLES Final Result [facility] ([facility]) 1 [facility] Department [place] [address] * (ABNORMAL) Genital fluid pap smear, thin [...] was performed using the APTIMA COMBO2 Assay ([employer] The analytical performance characteristics of this assay, when used to test SurePath specimens have been determined by [employer]. ?? Human papillomavirus RNA, High Risk E6/E7 Detected(A) Not Detected HISTORICAL RESULTS Comment: This test was performed using the APTIMA HPV Assay ([employer] ? This assay detects E6/E7 viral messenger RNA (mRNA) from 14 high-risk HPV types (16,18,31,33,35,39,45,51,52,56,58,59,66,68). Chlamydia trachomatis, PCR, genital swab NOT DETECTED NOT DETECTED HISTORICAL RESULTS Gonorrheae (GC) RNA, genital swab NOT DETECTED NOT DETECTED HISTORICAL RESULTS Genital 12/22/2014 7:00 PM CDT Narrative HISTORICAL RESULTS - 12/29/2014 2:00 AM CDT Test performed at [address] ??[id number] Director: MEGAN ALARCON MD us Historical Provider LAB CYTOLOGY ORDERABLES F inal Result HISTORICAL RESULTS from Last 3 Months or Most Recently Relevant to Health Maintenance Insurance [facility] OTHER Address: [address] [place] [id number] [facility] Advance Directives For more information, please contact: [phone] * Full Code (Latest Code Status on [...] in case of cardiopulmonary arrest Care Teams [employer] Relationship Specialty Start Date End Date Ronan Lebron MD [address] [place] [id number] PCP - General Family Medicine 09/23/16
--- NOTE | 2024-05-01 05:31 | PC.NURSE ---
LAB WORK OBTAINED BY DR VAN VIA LEFT GROIN FEMORAL STICK
[2024-05-01 05:34] LABS: Basophils Absolute Auto 0.08 K/mm3 (0.00-0.10); Basophils Percent Auto 0.7 % (0.0-1.0); Eosinophils Absolute Auto 0.19 K/mm3 (0.02-0.50); Eosinophils Percent Auto 1.7 % (1.0-6.0); Hemoglobin 11.9 g/dL (12.0-15.0); Immature Granulocyte Absolute 0.05 K/mm3 (0.00-0.00); Immature Granulocyte Percent A 0.4 % (0.0-0.0); Lymphocytes Absolute Auto 4.78 K/mm3 (1.10-4.50); Lymphocytes Percent Auto 42.2 % (18.0-42.0); Mean Corpuscular HGB Conc 33.1 g/dL (32-36); Mean Corpuscular Hemoglobin 28.8 pg (27.0-31.0); Mean Corpuscular Volume 87.2 fL (78.0-102.0); Mean Platelet Volume 10.4 fl (9.2-11.8); Monocytes Absolute Auto 0.93 K/mm3 (0.10-0.90); Monocytes Percent Auto 8.2 % (2.0-11.0); Neutrophils Percent Auto 46.8 % (50.0-70.0); Platelet Count Result 275 K/mm3 (150-420); Red Blood Count 4.13 M/mm3 (4.20-5.40); Red Cell Distribution Width 14.6 % (11.6-14.4); White Blood Count 11.3 K/mm3 (4.8-10.8)
[2024-05-01 05:53] LABS: Partial Thromboplastin Time 34.3 Sec (23.9-30.70); Prothrombin Time 10.6 Seconds (9.50-12.1)
[2024-05-01 05:55] LABS: Alanine Aminotransferase 22 U/L (14-59); Albumin Level 3.4 g/dL (3.4-5.0); Alkaline Phosphatase 78 U/L (46-116); Anion Gap 10 mmol/L (4-12); Aspartate Amino Transferase 17 U/L (15-37); Bilirubin,Total 0.2 mg/dL (0.00-1.00); Blood Urea Nitrogen 13 mg/dL (7-18); Calcium 8.8 mg/dL (8.5-10.1); Carbon Dioxide 25 mmol/L (21-32); Chloride 103 mmol/L (98-108); Estimated CRCL calculation 70 ml/min; Estimated Glomerular Filt Rate > 60; Glucose 91 mg/dL (70-99); NT Pro B Type Natriuretic Pept 21 pg/mL (0-125); Osmolality Calculated 286 mOsm/kg (285-295); Potassium 3.8 mmol/L (3.5-5.1); Sodium 138 mmol/L (136-145); Total Protein 6.6 g/dL (6.4-8.2)
[2024-05-01 06:00] LABS: Lipase 39 U/L (16-77); Troponin I < 4.0 ng/L (0.00-60.4)
--- NOTE | 2024-05-01 06:00 | PC.NURSE ---
ASKED PATIENT IF SHE COULD GIVE URINE SAMPLE. PATIENT AMBULATED TO THE BATHROOM WITHOUT DIFFICULTY.
--- NOTE | 2024-05-01 06:09 | PC.NURSE ---
URINE TAKEN DOWN TO LAB
[2024-05-01 06:26] LABS: D Dimer 0.19 mg/L (0.19-0.50)
[2024-05-01 06:28] LABS: Amphetamine Screen Urine Positive (Negative); Barbiturate Screen Urine Negative (Negative); Benzodiazepines Screen Urine Negative (Negative); Cannabinoid Screen Urine Positive (Negative); Cocaine Screen Urine Negative (Negative); Methadone Screen Urine Negative (Negative); Opiate Screen Urine Negative (Negative); Phencyclidine Screen Urine Negative (Negative)
[2024-05-01 06:30] LABS: Add Urine Microscopic? YES; Appearance Urine Sl Cloudy (Clear); Bilirubin Urine Negative (Negative); Blood Urine Negative (Negative); Color Urine Light Yellow (Yellow); Glucose Urine UA Negative (Negative); Ketones Urine Negative (Negative); Leukocyte Esterase Ur Negative (Negative); Nitrate Urine Positive (Negative); Protein Urine Negative (Negative); Specific Grav Ur >= 1.030 (1.010-1.020); Urobilinogen Urine 0.2 mg/dL (0.2-1.0)
[2024-05-01 06:31] LABS: Pregnancy On Board Control Positive; Urine Pregnancy Test Negative
[2024-05-01 06:34] LABS: Bacteria Urine 4+ /hpf; RBC Urine None seen /hpf (0-2); Squamous Epithelial Cell Urine Few /hpf (Few)
--- NOTE | 2024-05-01 06:45 | PC.NURSE ---
DR VAN AT THE BEDSIDE
[2024-05-01 06:51] VITALS: BP 132/78; PULSE 72; RESP 18; O2SAT 98
== END 2024-05-01 06:51 | disposition home or self-care (01) ==
PROVIDERS: Emergency Provider Emergency Medicine
DX: N30.00 Acute cystitis without hematuria (principal); R07.89 Other chest pain; F15.10 Other stimulant abuse, uncomplicated; Z79.899 Other long term (current) drug therapy
CPT/HCPCS: 36415; 71045; 80053; 80307; 81001; 81025; 83690; 83880; 84484; 85025; 85380; 85610; 85730; 93005; 99284; J2003

== ENCOUNTER 2024-09-17 12:42 | Emergency (ER) | payer OTHER, SELFPAY ==
[2024-09-17] VITALS (31 sets, daily range): BP systolic 124–160; BP diastolic 86–105; PULSE 78–105; RESP 11–26; TEMP 36.8; O2SAT 97–100
--- NOTE | ~2024-09-17 | XR_ITS ---
EXAMINATION: XR chest 2V DATE: 09/17/2024 13:11 INDICATION: Chest pain TECHNIQUE: PA and lateral views of the chest were obtained. COMPARISON: Chest radiograph dated 05/01/2024 FINDINGS: The lungs remain clear with no focal airspace opacities, pulmonary edema, pleural effusion or pneumot horax. The cardiomediastinal silhouette is normal. Mild thoracic spondylosis. IMPRESSION: 1. No acute cardiopulmonary disease. Reviewed, dictated and finalized at location A.
--- NOTE | 2024-09-17 12:46 | ECG_ITS ---
Test Date: 2024-09-17 12:52:28 Measurements Intervals [place] Rate: 87 P: 85 [place]: 126 QRS: 47 QRSD: 101 T: 81 QT: 385 QTc: 464 Interpretive Statements SINUS RHYTHM DELAYED PRECORDIAL R/S TRANSITION BASELINE ARTIFACT- II, III, AVF BORDERLINE ECG Compared to ECG 05/01/2024 05:06:45 NO SIGNIFICANT CHANGE Electronically Signed On 09-17-2024 13:06:25 CDT by Fab Liriano D.O.
--- NOTE | 2024-09-17 12:52 | ED_ITS ---
HPI - Chest Pain General Chief Complaint: Chest Pain Stated Complaint: chest pain Source: patient Mode of arrival: ambulatory Limitations: no limitations History of Present Illness HPI narrative: This is a 34-year-old female, with no significant past medical history who presents to the emergency department complaining chest pain. She states this has been occurring on and off for the past several weeks with the most recent episode lasting 2 days. She states describes the pain as a pounding and squeezing sensation without any known aggravating or alleviating factors. She denies associated nausea, vomiting cold sweats. She states she occasionally uses methamphetamines but has not noticed any change of the pain with the use of drugs. She denies difficulty breathing, cough fevers, chills, shortness of breath, lower extremity swelling or history of DVT. She has no other complaints at this time. Related Data Home Medications ?Medication ?Instructions ?Recorded ?Confirmed ?Last Taken ?Type bupropion HCl 150 mg 24 hr tablet, 150 mg PO DAILY 04/05/24 04/05/24 04/04/24 History extended release hydroxyzine HCl 25 mg tablet 25 mg PO .daily 04/05/24 04/05/24 04/04/24 History norethindrone 1.5 mg-ethinyl 1 tablet PO DAILY 04/05/24 04/05/24 Unknown History estradiol 30 mcg(21)/iron 75 mg(7) tablet (Veronica Fe 1.5/30 (28)) Allergies Allergy/AdvReac Type Severity Reaction Status Date / Time No Known Allergies Allergy Verified 04/30/24 10:29 Review of Systems 2 Review of Systems: All systems reviewed & are unremarkable except as noted in HPI and below (HPI) PMFSH Past Medical History Medical History Opioid abuse Methamphetamine abuse Surgical History Surgical History No significant past surgical history Social History Social History Smoking status: Current every day smoker Alcohol intake: never Substance use: current Substance use type: opiates and methamphetamine Exam 2 Narrative: GENERAL: Well-developed, well-nourished, and in no acute distress. HEAD: Normocephalic, atraumatic. EYES: PERRLA and EOMI. CHEST: Clear to auscultation. No respiratory distress. No wheezes rales or rhonchi. Tender to palpation over the left anterior chest wall without step-off or crepitus. HEART: Regular rate and rhythm. No murmur heard. Normal peripheral pulses. ABDOMEN: Soft, nontender, nondistended, normal active bowel sounds. EXTREMITIES: Normal range of motion. No edema. SKIN: Warm, dry, no rash. NEURO: Alert and oriented x3. No focal deficit. Moving all 4 limbs spontaneously PSYCH: Normal mood and affect. Course Course Emergency Course: 14:25 - EKG not concerning for ischemia and unchanged compared to prior EKGs. Initial troponin negative. CBC unremarkable. Chemistries within normal limits. D-dimer and lipase negative. Heart score 2. Will repeat troponin and reassess. 16:16 - Repeat troponin negative. I have low suspicion for ACS. Will discharge with recommendation for primary care follow-up. I discussed the findings and recommendations with the patient. Discussed return and emergency precautions including signs/symptoms of ACS and respiratory distress. The patient voiced understanding and agreement with the plan. All questions answered to her satisfaction. Vital Signs Vital signs: Vital Signs Pulse Rate 87 09/17/24 12:45 Temperature 98.2 F 09/17/24 12:47 Pulse Rate 87 09/17/24 16:16 Respiratory Rate 19 09/17/24 16:16 Blood Pressure 126/94 H 09/17/24 16:15 Pulse Oximetry 100 09/17/24 16:16 Oxygen Delivery Room Air 09/17/24 15:31 MDM - Chest Pain MDM Narrative Medical decision making narrative: plan: Labs, imaging, EKG, troponin, test, reassess Differential Diagnosis Differential diagnosis: Likely pneumothorax, costochondritis and other ( ACS, pancreatitis, PE, pleurisy, , metabolic abnormality, other) Lab Data 09/17/24 13:02 09/17/24 13:03 Labs: Lab Results 09/17/24 09/17/24 09/17/24 Range/Units 13:02 13:02 13:03 WBC 7.6 (4.8-10.8) K/mm3 RBC 4.68 (4.20-5.40) M/mm3 Hgb 13.6 (12.0-15.0) g/dL Hct 42.7 (35.0-49.0) % MCV 91.2 (78.0-102.0) fL MCH 29.1 (27.0-31.0) pg MCHC 31.9 L (32-36) g/dL RDW 13.1 (11.6-14.4) % Plt Count 282 (150-420) K/mm3 MPV 9.8 (9.2-11.8) fl Immature Gran % (Auto) 0.1 H (0.0-0.0) % Neut % (Auto) 60.4 (50.0-70.0) % Lymph % (Auto) 31.3 (18.0-42.0) % [facility] % (Auto) 6.9 (2.0-11.0) % Eos % (Auto) 0.8 L (1.0-6.0) % Baso % (Auto) 0.5 (0.0-1.0) % Lymph # (Auto) 2.39 (1.10-4.50) K/mm3 [facility] # (Auto) 0.53 (0.10-0.90) K/mm3 Eos # (Auto) 0.06 (0.02-0.50) K/mm3 Baso # (Auto) 0.04 (0.00-0.10) K/mm3 Abs Immat Gran (auto) 0.01 H (0.00-0.00) K/mm3 Absolute Neuts (auto) 4.61 (1.70-7.20) K/mm3 Absolute Nucleated RBC 0.00 (0.00-0.00) K/mm3 Nucleated RBC % 0.0 (0-0.0) % PT 10.7 (9.50-12.1) Seconds INR 1.0 D-Dimer 0.19 Cancelled (0.19-0.50) mg/L Sodium 138 (137-145) mmol/L Potassium 4.2 (3.4-5.0) mmol/L Chloride 105 (98-107) mmol/L Carbon Dioxide 29 (22-30) mmol/L Anion Gap 4 (4-12) mmol/L BUN 15 (7-17) mg/dL Creatinine 0.67 L (0.7-1.0) mg/dL Estim Creat Clear Calc 77 ml/min Estimated GFR > 60 (59 - ) Glucose 112 H (65-110) mg/dL Calculated Osmolality 287 (285-295) mOsm/kg Calcium 9.1 (8.4-10.2) mg/dL Total Bilirubin 0.6 (0.2-1.3) mg/dL AST 22 (14-36) U/L ALT 12 (6-35) U/L Alkaline Phosphatase 79 (38-126) U/L Troponin I Cancelled < 0.012 Total Protein 7.2 (6.3-8.2) g/dL Albumin 4.2 (3.5-5.1) g/dL Lipase 62 (23-300) U/L Urine Test Negative 09/17/24 Range/Units 15:41 WBC (4.8-10.8) K/mm3 RBC (4.20-5.40) M/mm3 Hgb (12.0-15.0) g/dL Hct (35.0-49.0) % MCV (78.0-102.0) fL MCH (27.0-31.0) pg MCHC (32-36) g/dL RDW (11.6-14.4) % Plt Count (150-420) K/mm3 MPV (9.2-11.8) fl Immature Gran % (Auto) (0.0-0.0) % Neut % (Auto) (50.0-70.0) % Lymph % (Auto) (18.0-42.0) % [facility] % (Auto) (2.0-11.0) % Eos % (Auto) (1.0-6.0) % Baso % (Auto) (0.0-1.0) % Lymph # (Auto) (1.10-4.50) K/mm3 [facility] # (Auto) (0.10-0.90) K/mm3 Eos # (Auto) (0.02-0.50) K/mm3 Baso # (Auto) (0.00-0.10) K/mm3 Abs Immat Gran (auto) (0.00-0.00) K/mm3 Absolute Neuts (auto) (1.70-7.20) K/mm3 Absolute Nucleated RBC (0.00-0.00) K/mm3 Nucleated RBC % (0-0.0) % PT (9.50-12.1) Seconds INR D-Dimer (0.19-0.50) mg/L Sodium (137-145) mmol/L Potassium (3.4-5.0) mmol/L Chloride (98-107) mmol/L Carbon Dioxide (22-30) mmol/L Anion Gap (4-12) mmol/L BUN (7-17) mg/dL Creatinine (0.7-1.0) mg/dL Estim Creat Clear Calc ml/min Estimated GFR (59 - ) Glucose (65-110) mg/dL Calculated Osmolality (285-295) mOsm/kg Calcium (8.4-10.2) mg/dL Total Bilirubin (0.2-1.3) mg/dL AST (14-36) U/L ALT (6-35) U/L Alkaline Phosphatase (38-126) U/L Troponin I < 0.012 Total Protein (6.3-8.2) g/dL Albumin (3.5-5.1) g/dL Lipase (23-300) U/L Urine Test ECG Data EKG #1: Attestation: I personally reviewed and interpreted this ECG as follows: ECG completion date: 09/17/24 ECG completion time: 12:52 Interpretation: sinus rhythm, rate 87, normal axis, no ST segment elevations or T-wave inversions concerning for ischemia, normal intervals with QTC of 429. Compared to EKG done in April 2024, there are no significant changes. Discharge Plan Discharge Clinical Impression: Atypical chest pain Patient Disposition: Home Condition: Stable Instructions: Antibiotic Form, Chest Wall Pain (ED) Additional Instructions: You were seen in the emergency department. Your labs and EKG were not concerning for injury to the heart. A chest x-ray was not concerning for pneumonia. A test was negative. I suspect irritation of the lining of the chest wall or the musculature as the cause of your pain. I recommend Tylenol, ibuprofen for pain and follow-up with a primary care doctor. If you develop New or worsening chest pain, shortness of breath, loss of consciousness, or if you have other emergent concerns for life, limb, or eyesight, return to the emergency department. Patient Language: Bulgarian Prescriptions: No Action bupropion HCl 150 mg tablet extended release 24 hr 150 mg PO DAILY hydroxyzine HCl 25 mg tablet 25 mg PO .daily norethindrone-e.estradiol-iron [Veronica Fe 1.5/30 (28)] 1.5 mg-30 mcg (21)/75 mg (7) tablet 1 tablet PO DAILY cephalexin 500 mg capsule 500 mg PO BID 7 Days Qty: 14 0RF Follow-up/Referrals: Ortiz Norris MD [Primary Care Provider] - 2 Weeks Time of Disposition: 16:23
[2024-09-17 13:07] LABS: Basophils Absolute Auto 0.04 K/mm3 (0.00-0.10); Basophils Percent Auto 0.5 % (0.0-1.0); Eosinophils Absolute Auto 0.06 K/mm3 (0.02-0.50); Eosinophils Percent Auto 0.8 % (1.0-6.0); Hematocrit 42.7 % (35.0-49.0); Hemoglobin 13.6 g/dL (12.0-15.0); Immature Granulocyte Absolute 0.01 K/mm3 (0.00-0.00); Immature Granulocyte Percent A 0.1 % (0.0-0.0); Lymphocytes Absolute Auto 2.39 K/mm3 (1.10-4.50); Lymphocytes Percent Auto 31.3 % (18.0-42.0); Mean Corpuscular HGB Conc 31.9 g/dL (32-36); Mean Corpuscular Hemoglobin 29.1 pg (27.0-31.0); Mean Corpuscular Volume 91.2 fL (78.0-102.0); Mean Platelet Volume 9.8 fl (9.2-11.8); Monocytes Absolute Auto 0.53 K/mm3 (0.10-0.90); Monocytes Percent Auto 6.9 % (2.0-11.0); Neutrophils Absolute Auto 4.61 K/mm3 (1.70-7.20); Neutrophils Percent Auto 60.4 % (50.0-70.0); Platelet Count Result 282 K/mm3 (150-420); Red Blood Count 4.68 M/mm3 (4.20-5.40); Red Cell Distribution Width 13.1 % (11.6-14.4); White Blood Count 7.6 K/mm3 (4.8-10.8)
[2024-09-17 13:22] LABS: Alanine Aminotransferase 12 U/L (6-35); Albumin Level 4.2 g/dL (3.5-5.1); Alkaline Phosphatase 79 U/L (38-126); Anion Gap 4 mmol/L (4-12); Aspartate Amino Transferase 22 U/L (14-36); Bilirubin,Total 0.6 mg/dL (0.2-1.3); Blood Urea Nitrogen 15 mg/dL (7-17); Calcium 9.1 mg/dL (8.4-10.2); Carbon Dioxide 29 mmol/L (22-30); Chloride 105 mmol/L (98-107); Estimated CRCL calculation 77 ml/min; Estimated Glomerular Filt Rate > 60; Glucose 112 mg/dL (65-110); Lipase 62 U/L (23-300); Osmolality Calculated 287 mOsm/kg (285-295); Potassium 4.2 mmol/L (3.4-5.0); Sodium 138 mmol/L (137-145); Total Protein 7.2 g/dL (6.3-8.2)
[2024-09-17 13:25] LABS: D Dimer 0.19 mg/L (0.19-0.50); Prothrombin Time 10.7 Seconds (9.50-12.1)
[2024-09-17 13:33] LABS: Troponin I < 0.012 ng/mL (0.000-0.034)
[2024-09-17] MEDS: MORPHINE SULFATE (*CRX) 4 MG/ML INJ IM (13:37)
[2024-09-17 14:04] LABS: Pregnancy On Board Control Positive; Urine Pregnancy Test Negative
[2024-09-17 16:12] LABS: Troponin I < 0.012 ng/mL (0.000-0.034)
== END 2024-09-17 16:32 | disposition home or self-care (01) ==
PROVIDERS: Emergency Provider Preventive Medicine Aerospace Medicine; PCP Internal Medicine
DX: R07.89 Other chest pain (principal); F17.200 Nicotine dependence, unspecified, uncomplicated
CPT/HCPCS: 36415; 71046; 80053; 81025; 83690; 84484; 85025; 85380; 85610; 93005; 96372; 99284; J2270

== ENCOUNTER 2024-09-23 04:27 | Emergency (ER) | payer OTHER, SELFPAY ==
[2024-09-23] VITALS (10 sets, daily range): BP systolic 115; BP diastolic 70–82; PULSE 73–99; RESP 11–18; TEMP 36–36.5; O2SAT 97–99
--- NOTE | ~2024-09-23 | XR_ITS ---
Portable chest x-ray Comparison: 09/17/2024 Clinical History: Chest pain Findings: Lungs are clear, without focal consolidation or pleural effusion. Cardiomediastinal silho uette is stable. Bones and soft tissues are unremarkable. Impression: Normal chest. Reviewed, dictated and finalized at [facility]. Impression: Normal chest.
--- NOTE | 2024-09-23 04:33 | ECG_ITS ---
Test Date: 2024-09-23 04:38:28 Measurements Intervals [place] Rate: 93 P: 51 CO: 134 QRS: -9 QRSD: 104 T: 49 QT: 384 QTc: 478 Interpretive Statements SINUS RHYTHM INCOMPLETE RIGHT BUNDLE BRANCH BLOCK BASELINE ARTIFACT- I, II, AVR, AVF BORDERLINE ECG Compared to ECG 09/17/2024 12:52:28 Incomplete right bundle-branch block now present Electronically Signed On 09-23-2024 06:34:32 CDT by Fab Liriano D.O.
--- NOTE | 2024-09-23 04:34 | ED_ITS ---
HPI - Chest Pain General Chief Complaint: Chest Pain Stated Complaint: chest pain Time Seen by Provider: 09/23/24 04:33 Source: patient Mode of arrival: ambulatory Limitations: no limitations History of Present Illness HPI narrative: patient is a 34-year-old female with chest pain. She has been in the ER recently for chest pain and it was a negative workup and that resolved on its own. She is having left-sided chest pain that feels like a fullness around the heart per her words. Patient is an active meth user. MD complaint: chest pain and chest heaviness Pertinent past history: other ( Meth use) Onset (ago): week(s) (2) Timing of current episode: episodic, daily and still present Prior episodes: Yes Onset: during rest, during exertion and associated with drug use Pain location: substernal and left chest Pain radiation: none Severity: mild Pain scale (0-10): 3 Quality: sharp and fullness Relieving factors: nothing Exacerbating factors: movement and other ( meth use) Context: other ( patient having recurrent chest pains and active meth use regularly) Associated symptoms: other ( none) Treatment prior to arrival: none Risk Factors Coronary artery disease risk factors: smoking history Thoracic aortic dissection risk factors: none Related Data On Oral Contraceptives: Yes Home Medications ?Medication ?Instructions ?Recorded ?Confirmed ?Last Taken ?Type bupropion HCl 150 mg 24 hr tablet, 150 mg PO DAILY 04/05/24 04/05/24 04/04/24 History extended release hydroxyzine HCl 25 mg tablet 25 mg PO .daily 04/05/24 04/05/24 04/04/24 History norethindrone 1.5 mg-ethinyl 1 tablet PO DAILY 04/05/24 04/05/24 Unknown History estradiol 30 mcg(21)/iron 75 mg(7) tablet (Veronica Fe 1.5/30 (28)) Allergies Allergy/AdvReac Type Severity Reaction Status Date / Time No Known Allergies Allergy Verified 09/23/24 06:20 Review of Systems 2 Review of Systems: All systems reviewed & are unremarkable except as noted in HPI and below Constitutional: Constitutional: Reports no additional constitutional complaints Eyes: Eyes: Reports no additional eye complaints ENT: Reports system reviewed and no additional complaints, except as documented Cardiovascular: Cardiovascular: Reports no additional cardiovascular complaints Respiratory: Respiratory: Reports no additional respiratory complaints Gastrointestinal: Gastrointestinal: Reports no additional gastrointestinal complaints Genitourinary: Genitourinary: Reports no additional female genitourinary complaints Musculoskeletal: Musculoskeletal: Reports no additional musculoskeletal complaints Integumentary/Breasts: Skin/Breast: Reports system reviewed and no additional complaints, except as docu Neurologic: Reports system reviewed and no additional complaints, except as documented Psychiatric: Psychiatric: Reports no additional psychiatric complaints Endocrine: Endocrine: Reports no additional endocrine complaints Hematologic/Lymphatic: Hematologic/Lymphatic: Reports no additional hematologic/lymphatic complaints Allergic/Immunologic: Allergic/Immunologic: Reports no additional allergic/immunologic complaints PMFSH Past Medical History Medical History Opioid abuse Methamphetamine abuse Surgical History Surgical History No significant past surgical history Social History Social History Smoking status: Current every day smoker Alcohol intake: never Substance use: current Substance use type: opiates and methamphetamine Exam 2 Const: General: healthy appearing Nutritional Appearance: well nourished Orientation/consciousness: patient oriented x3 Limitations: no limitations HENMT: Head: normal to inspection Ears: external ears normal F yadira/Nose/Sinus: Normal external nose present Eyes: Conjunctivae: conjunctivae normal Pupils: Equal, round and reactive pupils present EOM: EOMs intact bilaterally Neck: Neck: normal visual inspection Chest: Chest palpation & inspection: normal inspection of the chest Resp: Effort & Inspection: normal respiratory effort and not labored A uscultation: clear to auscultation bilaterally and no crackles Cardio: Rate: regular rate Rhythm: regular rhythm Heart sounds: no murmurs GI: Inspection: non-distended GI Palp: Yes Soft to palpation and No Tenderness to palpation present (GI) Auscultation: normal bowel sounds : General: Yes bladder normal to palpation Back/Spine/Pelvis: Back: no CVA tenderness Skin: General skin exam: normal color Rashes: no rashes Wounds: no wounds Neuro: General: patient oriented x3, moves all extremities, no meningeal signs, no focal motor deficits and CN's II-XI intact bilaterally Extrem: General: normal to inspection Psych: Mental Status: mental status grossly normal Affect: normal affect Attitude: cooperative Course Vital Signs Vital signs: Vital Signs Temperature 36.0 C L 09/23/24 04:27 Pulse Rate 96 09/23/24 04:27 Respiratory Rate 18 09/23/24 04:27 Blood Pressure 115/82 09/23/24 04:27 Pulse Oximetry 97 09/23/24 04:27 Oxygen Delivery Room Air 09/23/24 04:27 Temperature 36.0 C L 09/23/24 04:27 Pulse Rate 77 09/23/24 06:30 Respiratory Rate 16 09/23/24 06:30 Blood Pressure 115/82 09/23/24 04:27 Pulse Oximetry 98 09/23/24 06:30 Oxygen Delivery Room Air 09/23/24 06:30 MDM - Chest Pain MDM Narrative Medical decision making narrative: patient is a 34-year-old female with chest pain. We will do a cardiac workup at this time. We discussed meth use. Lab Data Attestation: I reviewed the patient's lab results. 09/23/24 05:16 09/23/24 05:16 Labs: Lab Results 09/23/24 09/23/24 Range/Units 05:16 06:12 WBC 9.5 (4.8-10.8) K/mm3 RBC 4.17 L (4.20-5.40) M/mm3 Hgb 12.2 (12.0-15.0) g/dL Hct 38.1 (35.0-49.0) % MCV 91.4 (78.0-102.0) fL MCH 29.3 (27.0-31.0) pg MCHC 32.0 (32-36) g/dL RDW 13.1 (11.6-14.4) % Plt Count 293 (150-420) K/mm3 MPV 10.2 (9.2-11.8) fl Immature Gran % (Auto) 0.3 H (0.0-0.0) % Neut % (Auto) 50.1 (50.0-70.0) % Lymph % (Auto) 38.6 (18.0-42.0) % Desha % (Auto) 7.9 (2.0-11.0) % Eos % (Auto) 2.3 (1.0-6.0) % Baso % (Auto) 0.8 (0.0-1.0) % Lymph # (Auto) 3.67 (1.10-4.50) K/mm3 Desha # (Auto) 0.75 (0.10-0.90) K/mm3 Eos # (Auto) 0.22 (0.02-0.50) K/mm3 Baso # (Auto) 0.08 (0.00-0.10) K/mm3 Abs Immat Gran (auto) 0.03 H (0.00-0.00) K/mm3 Absolute Neuts (auto) 4.76 (1.70-7.20) K/mm3 Absolute Nucleated RBC 0.00 (0.00-0.00) K/mm3 Nucleated RBC % 0.0 (0-0.0) % PT 10.3 (9.50-12.1) Seconds INR 0.9 APTT 35.2 H (23.9-30.70) Sec D-Dimer 0.19 (0.19-0.50) mg/L Sodium 136 L (137-145) mmol/L Potassium 3.9 (3.4-5.0) mmol/L Chloride 104 (98-107) mmol/L Carbon Dioxide 29 (22-30) mmol/L Anion Gap 3 L (4-12) mmol/L BUN 15 (7-17) mg/dL Creatinine 0.62 L (0.7-1.0) mg/dL Estim Creat Clear Calc 84 ml/min Estimated GFR > 60 (59 - ) Glucose 109 (65-110) mg/dL Calculated Osmolality 283 L (285-295) mOsm/kg Calcium 8.8 (8.4-10.2) mg/dL Total Bilirubin 0.5 (0.2-1.3) mg/dL AST 25 (14-36) U/L ALT 13 (6-35) U/L Alkaline Phosphatase 83 (38-126) U/L Troponin I < 0.012 (0.000-0.034) ng/mL Total Protein 7.0 (6.3-8.2) g/dL Albumin 4.1 (3.5-5.1) g/dL Lipase 86 (23-300) U/L Urine Color Light yellow (Yellow) Urine Appearance Sl cloudy A (Clear) Urine pH 7.0 (5.0-8.0) Ur Specific [place] 1.015 (1.010-1.020) Urine Protein Negative (Negative) Urine Glucose (UA) Negative (Negative) Urine Ketones Negative (Negative) Ur Blood (Man) Negative (Negative) Urine Nitrate Positive H (Negative) Urine Bilirubin Negative (Negative) Urine Urobilinogen 0.2 (0.2-1.0) mg/dL Leukocyte Esterase Rfl 2+ H (Negative) [place]/UL Urine RBC None seen (0-2) /hpf Urine WBC 7-9 H (0-3) /hpf Ur Squamous Epith Cells Few (Few) /hpf Urine Bacteria 3+ H (None) /hpf Urine Test Negative Urine Opiates Screen Pending Urine Methadone Screen Pending Ur Barbiturates Screen Pending Ur Phencyclidine Scrn Pending Ur Amphetamine Screen Pending U Benzodiazepines Scrn Pending Urine Cocaine Screen Pending U Cannabinoids Screen Pending Imaging Data Attestation: I personally reviewed and interpreted this imaging study as follows: Radiologist's impression: Chest x-ray is negative for acute process ECG Data EKG #1: Attestation: I personally reviewed and interpreted this ECG as follows: ECG completion date: 09/23/24 ECG completion time: 05:44 EKG Interpretation: normal rate, sinus rhythm, no ectopy, no ST changes, normal QRS, normal QT, left axis and no acute changes Discharge Plan Discharge Clinical Impression: Atypical chest pain UTI (urinary tract infection) Qualifiers: Urinary tract infection type: acute cystitis Hematuria presence: without hematuria Qualified Code(s): N30.00 - Acute cystitis without hematuria Patient Disposition: Home Condition: Stable Instructions: Chest Pain (ED), Urinary Tract Infection in Women (DC) Additional Instructions: please follow-up with primary doctor in the next week. I suggest outpatient geological engineer or stress test and echocardiogram of your heart. Patient Language: [place] Prescriptions: New ciprofloxacin HCl [Cipro] 500 mg tablet 500 mg PO BID 7 Days Qty: 14 0RF No Action bupropion HCl 150 mg tablet extended release 24 hr 150 mg PO DAILY hydroxyzine HCl 25 mg tablet 25 mg PO .daily norethindrone-e.estradiol-iron [Veronica Vazquez 1.5/30 (28)] 1.5 mg-30 mcg (21)/75 mg (7) tablet 1 tablet PO DAILY cephalexin 500 mg capsule 500 mg PO BID 7 Days Qty: 14 0RF Follow-up/Referrals: Matt Castro MD [Primary Care Provider] - Time of Disposition: 06:30
--- NOTE | 2024-09-23 05:15 | PC.NURSE ---
phlebotomy at bedside for lab draw. RN monitoring. patient remains on cardiac rehab nurse. call light within reach.
[2024-09-23 05:42] LABS: Basophils Absolute Auto 0.08 K/mm3 (0.00-0.10); Basophils Percent Auto 0.8 % (0.0-1.0); Eosinophils Absolute Auto 0.22 K/mm3 (0.02-0.50); Eosinophils Percent Auto 2.3 % (1.0-6.0); Hematocrit 38.1 % (35.0-49.0); Hemoglobin 12.2 g/dL (12.0-15.0); Immature Granulocyte Absolute 0.03 K/mm3 (0.00-0.00); Immature Granulocyte Percent A 0.3 % (0.0-0.0); Lymphocytes Absolute Auto 3.67 K/mm3 (1.10-4.50); Lymphocytes Percent Auto 38.6 % (18.0-42.0); Mean Corpuscular Hemoglobin 29.3 pg (27.0-31.0); Mean Corpuscular Volume 91.4 fL (78.0-102.0); Mean Platelet Volume 10.2 fl (9.2-11.8); Monocytes Absolute Auto 0.75 K/mm3 (0.10-0.90); Monocytes Percent Auto 7.9 % (2.0-11.0); Neutrophils Absolute Auto 4.76 K/mm3 (1.70-7.20); Neutrophils Percent Auto 50.1 % (50.0-70.0); Platelet Count Result 293 K/mm3 (150-420); Red Blood Count 4.17 M/mm3 (4.20-5.40); Red Cell Distribution Width 13.1 % (11.6-14.4); White Blood Count 9.5 K/mm3 (4.8-10.8)
[2024-09-23 05:50] LABS: Alanine Aminotransferase 13 U/L (6-35); Albumin Level 4.1 g/dL (3.5-5.1); Alkaline Phosphatase 83 U/L (38-126); Anion Gap 3 mmol/L (4-12); Aspartate Amino Transferase 25 U/L (14-36); Bilirubin,Total 0.5 mg/dL (0.2-1.3); Blood Urea Nitrogen 15 mg/dL (7-17); Calcium 8.8 mg/dL (8.4-10.2); Carbon Dioxide 29 mmol/L (22-30); Chloride 104 mmol/L (98-107); Estimated CRCL calculation 84 ml/min; Estimated Glomerular Filt Rate > 60; Glucose 109 mg/dL (65-110); Lipase 86 U/L (23-300); Osmolality Calculated 283 mOsm/kg (285-295); Potassium 3.9 mmol/L (3.4-5.0); Sodium 136 mmol/L (137-145)
[2024-09-23 05:58] LABS: D Dimer 0.19 mg/L (0.19-0.50); INR 0.9; Partial Thromboplastin Time 35.2 Sec (23.9-30.70); Prothrombin Time 10.3 Seconds (9.50-12.1)
[2024-09-23 06:01] LABS: Troponin I < 0.012 ng/mL (0.000-0.034)
[2024-09-23 06:17] LABS: Pregnancy On Board Control Positive; Urine Pregnancy Test Negative
[2024-09-23 06:20] LABS: Add Urine Microscopic? YES; Appearance Urine Sl Cloudy (Clear); Bilirubin Urine Negative (Negative); Blood Urine Negative (Negative); Color Urine Light Yellow (Yellow); Glucose Urine UA Negative (Negative); Ketones Urine Negative (Negative); Leukocyte Esterase Ur 2+ LEU/UL (Negative); Nitrate Urine Positive (Negative); Protein Urine Negative (Negative); Specific Grav Ur 1.015 (1.010-1.020); Urobilinogen Urine 0.2 mg/dL (0.2-1.0)
[2024-09-23 06:24] LABS: Bacteria Urine 3+ /hpf; RBC Urine None seen /hpf (0-2); Squamous Epithelial Cell Urine Few /hpf (Few)
[2024-09-23 06:39] LABS: Barbiturate Screen Urine Negative (Negative); Benzodiazepines Screen Urine Negative (Negative); Cannabinoid Screen Urine Positive (Negative); Cocaine Screen Urine Negative (Negative); Methadone Screen Urine Negative (Negative); Opiate Screen Urine Negative (Negative); Phencyclidine Screen Urine Negative (Negative)
[2024-09-23 08:19] LABS: Amphetamine Screen Urine Positive (Negative)
--- NOTE | 2024-09-25 14:23 | PC.NURSE ---
preliminary urine culture reviewed. >100,000 e. coli
--- NOTE | 2024-09-26 12:45 | PC.NURSE ---
final urine culture report reviewed. shows sensitivity to cipro, pt discharged with a prescription of cipro. no change in plan of care
== END 2024-09-23 06:57 | disposition home or self-care (01) ==
PROVIDERS: Emergency Provider Emergency Medicine; PCP Internal Medicine
DX: R07.89 Other chest pain (principal); N30.00 Acute cystitis without hematuria; F17.200 Nicotine dependence, unspecified, uncomplicated
CPT/HCPCS: 36415; 71045; 80053; 80307; 81001; 81025; 83690; 84484; 85025; 85380; 85610; 85730; 87077; 87086; 87088; 87186; 93005; 99284